=== PATIENT | male | born 1965 | race African-American/Black ===

== ENCOUNTER 2020-03-26 14:17 | Inpatient (IN) | payer OTHER ==
--- NOTE | 2020-03-26 20:43 | HP ---
COWS - Scale Resting Pulse: 0= [place] 80 or Below Sweatin= Chills/Flushing Restless Observation: 0= Sits Still Pupil Size: 0= Normal to Room Light Bone or Joint Aches: 4=Acute Joint/Muscle Pain Runny Nose/ Eye Tearin= Runny Nose/Eyes GI Upset > 30mins: 1= Stomach Cramp Tremor Observation: 0= None Yawning Observation: 1= 1-2x During Session Anxiety or Irritability: 1=Feels Anxious/Irritable Goose Flesh Skin: 0=Smooth Skin COWS Score: 10 CIWA Score Nausea/Vomitin-No Nausea/No Vomiting Muscle Tremors: None Anxiety: 1-Mildly Anxious Agitation: 1-Slight > Activity Paroxysmal Sweats: 1-Minimal Palms Moist Orientation: 1-Uncertain about Date Tacttile Disturbances: 0-None Auditory Disturbances: 0-None Visual Disturbances: 0-None Headache: 0-None Present CIWA-Ar Total Score: 4 - Admission Criteria OASAS Guidelines: Admission for Medically Managed Detox: Requires at least one of the followin. CIWA greater than 12 2. Seizures within the past 24 hours 3. Delirium tremens within the past 24 hours 4. Hallucinations within the past 24 hours 5. Acute intervention needed for co occurring medical disorder 6. Acute intervention needed for co occurring psychiatric disorder 7. Severe withdrawal that cannot be handled at a lower level of care (continued vomiting, continued diarrhea, abnormal vital signs) requiring intravenous medication and/or fluids 8. Admission [facility] Allergies/Adverse Reactions: Allergies Allergy/AdvReac Type Severity Reaction Status Date / Time No Known Allergies Allergy Verified 03/26/20 20:38 History of Present Illness: 54 y.o. male requesting detox from heroin and alcohol heroin 13-14 bags via inhalation , latest use yesterday etoh : 1 pint/day since 15 years ago , denies seizures, latest use yesterday , denies tremors or blackouts. cocaine : 50 $ every 3 days via smoking denies benzodiazepine and methadone use " sometimes they mix it with the drugs " tobacco : 6 cigs/day PMHX : COPD on Albuterol PSHX : denies Psych : denies Exam Limitations: Clinical Condition - Review of Systems Constitutional: Loss of Appetite, Unintentional Wgt. Loss (190 lbs previously , currently 170 lbs) EENT: reports: Tearing, Nose Congestion, Other (decreased vision) Respiratory: reports: Cough, Shortness of Breath Cardiac: reports: No Symptoms Reported GI: reports: Poor Appetite : reports: No Symptoms Reported Musculoskeletal: reports: Muscle Pain Integumentary: reports: No Symptoms Reported Neuro: reports: No Symptoms reported Endocrine: reports: No Symptoms Reported Hematology: reports: No Symptoms Reported Psychiatric: reports: Agitated, Anxious, Disorientated Patient History - Smoking Cessation Smoking history: Current every day smoker Have you smoked in the past 12 months: Yes Hx Chewing Tobacco Use: No Initiated information on smoking cessation: Yes 'Breaking Loose' booklet given: 03/26/20 Admission Physical Exam BHS - Physical General Appearance: Yes: Disheveled, Mild Distress, Irritable, Anxious HEENTM: Yes: EOMI, Nasal Congestion, Rhinorrhea, Muffled/Hoarse Voice Respiratory: Yes: Decreased Breath Sounds, No Respiratory Distress, No Accessory Muscle Use, Rales, Wheezing (scattered throughout lung marks), Other (cough) Neck: Yes: No masses,lesions,Nodules, Trachea in good position Cardiology: Yes: Regular Rhythm, Regular Rate, S1, S2 Abdominal: Yes: Non Tender, Soft Back: Yes: Normal Inspection Musculoskeletal: Yes: Gait Steady Extremities: Yes: Normal Range of Motion, Non-Tender Neurological: Yes: Motor Strength 5/5, Disoriented, Depressed Affect Integumentary: Yes: Warm, Other (trace pedal edema) - Addiitonal Findings: ED for COPD nebulizer tx as this is not available at this facility Pt refused to go and signed refusal of medical care with EMS and staff - Diagnostic (1) Opioid use disorder Current Visit: Yes Status: Chronic (2) Alcohol use disorder Current Visit: Yes Status: Chronic (3) Cocaine use disorder Current Visit: Yes Status: Chronic (4) Nicotine dependence Current Visit: Yes Status: Chronic Qualifiers: Nicotine product type: cigarettes Breathalyzer - Breathalyzer Breathalyzer: 0 Urine Drug Screen - Test Device Lot number: [id number] Expiration date: 11/08/21 - Control Is test valid?: Yes - Results Drug screen NEGATIVE: No Urine drug screen results: ESTHER-Cocaine, FEN-Fentanyl, MOP-Opiates, MTD- Methadone, BZO-Benzodiazepines Inpatient Rehab Admission - Rehab Decision to Admit Inpatient rehab admission?: No
[2020-03-26] MEDS ORDERED: MAGNESIUM HYDROX 2400MG/30ML ORAL SUSPENSION 30 ML CUP PO PRN (21:07)
[2020-03-26] MEDS ORDERED: MENTHOL/PHENOL 1 EACH UD MM PRN (21:07)
[2020-03-26] MEDS ORDERED: ACETAMINOPHEN 325 MG TABLET (FP) PO PRN ×2 (21:07)
[2020-03-26] MEDS ORDERED: MAG HYDROX/AL HYDROX/SIMETH 30 ML UNIT-DOSE CUP PO PRN (21:07)
[2020-03-26] MEDS ORDERED: hydrOXYzine PAMOATE 25 MG CAPSULE (FP) PO PRN (21:07)
[2020-03-26] MEDS ORDERED: MELATONIN 5 MG TABLETS PO PRN (21:07)
[2020-03-26] MEDS ORDERED: METHOCARBAMOL 500 MG TABLET PO PRN (21:07)
[2020-03-26] MEDS ORDERED: MAGNESIUM CITRATE 300 ML BOTTLE PO PRN (21:07)
[2020-03-26] MEDS ORDERED: BISMUTH SUBSALICYLATE 524 MG/30 ML UD PO PRN (21:07)
[2020-03-26] MEDS ORDERED: IBUPROFEN 400 MG TABLET (FP) PO PRN (21:07)
[2020-03-26] MEDS ORDERED: diazePAM 5 MG TABLET PO PRN (21:09)
[2020-03-26] MEDS ORDERED: cloNIDine HCL 0.1 MG TABLET PO PRN (21:10)
[2020-03-26] MEDS ORDERED: ONDANSETRON *ODT* 4 MG TABLET SL ONE (21:15)
[2020-03-26] MEDS ORDERED: METHADONE HCL 10 MG TABLET (FOR DETOX USE ONLY) ONE (21:28)
[2020-03-26] MEDS ORDERED: diazePAM 5 MG TABLET ONE (21:28)
[2020-03-26] MEDS ORDERED: METHADONE HCL 10 MG TABLET (FOR DETOX USE ONLY) PO ONE (21:30)
[2020-03-26] MEDS: diazePAM 5 MG TABLET PO SCH (21:40)
[2020-03-26 22:37] VITALS: BMI 23.0
[2020-03-26] MEDS: THIAMINE HCL 100 MG TABLET (FP) PO SCH (23:01)
[2020-03-27] MEDS: diazePAM 5 MG TABLET PO SCH ×3 (06:35→23:23)
[2020-03-27] MEDS ORDERED: METHADONE HCL 5 MG TABLET (FOR DETOX USE ONLY) PO ONE (10:00)
--- NOTE | 2020-03-27 10:19 | EKG ---
Test Reason : Blood Pressure : / mmHG Vent. Rate : 081 BPM Atrial Rate : 081 BPM P-R Int : 130 ms QRS Dur : 082 ms QT Int : 366 ms P-R-T Axes : 070 062 049 degrees QTc Int : 425 ms NORMAL SINUS RHYTHM NORMAL ECG NO PREVIOUS ECGS AVAILABLE Confirmed by MD Rizwan, Pool ([id number]) on 03/27/2020 10:18:53 AM Referred By: Confirmed By:Pool Astorga MD
[2020-03-27] MEDS: PRENATAL VITAMINS W/ FOLIC ACID TABLET (FP) PO SCH (10:44)
[2020-03-27 10:46] LABS: HEMATOCRIT 39.8 % (35.4-49); HEMOGLOBIN 12.9 GM/dL (11.7-16.9); MCH 29.8 pg (25.7-33.7); MCHC 32.3 g/dl (32.0-35.9); MEAN CELL VOLUME 92.4 fl (80-96); MEAN PLT VOLUME 8.5 fl (7.5-11.1); PLATELET COUNT 235 K/MM3 (134-434); RBC 4.31 M/mm3 (4.00-5.60); RDW 15.2 % (11.9-15.9); WHITE BLOOD COUNT 12.2 K/mm3 (4.0-10.0)
[2020-03-27 10:59] LABS: ALBUMIN 3.5 g/dl (3.4-5.0); BILIRUBIN,TOTAL 0.6 mg/dL (0.2-1); BLOOD UREA NITROGEN 15.1 mg/dL (7-18); CALCIUM 8.9 mg/dL (8.5-10.1); POTASSIUM 4.1 mmol/L (3.5-5.1); TOT PROT 6.4 g/dl (6.4-8.2)
--- NOTE | 2020-03-27 11:19 | PN ---
[facility] CIWA - CIWA Score Nausea/Vomitin-No Nausea/No Vomiting Muscle Tremors: None Anxiety: 3 Agitation: 0-Normal Activity Paroxysmal Sweats: 3 Orientation: 0-Oriented Tacttile Disturbances: 0-None Auditory Disturbances: 0-None Visual Disturbances: 0-None Headache: 2-Mild CIWA-Ar Total Score: 8 S COWS - Scale Resting Pulse: 1= [place] 81-100 Sweatin= Chills/Flushing Restless Observation: 1= Difficult to Sit Still Pupil Size: 0= Normal to Room Light Bone or Joint Aches: 2= Severe Diffuse Aches Runny Nose/ Eye Tearin= None GI Upset > 30mins: 0= None Tremor Observation of Outstretched Hands: 0= None Yawning Observation: 0= None Anxiety or Irritability: 2=Irritable/Anxious Goose Flesh Skin: 0=Smooth Skin COWS Score: 7 [facility] Progress Note (SOAP) Subjective: c/o sweats, anxiety, headache, and muscle aches. Objective: 03/27/20 11:15 Vital Signs 03/27/20 07:25 Temperature 99.1 F Pulse Rate 88 Respiratory 18 Rate Blood Pressure 145/99 O2 Sat by Pulse 96 Oximetry (%) Laboratory Last Values WBC 12.2 K/mm3 (4.0-10.0) H 03/27/20 08:30 RBC 4.31 M/mm3 (4.00-5.60) 03/27/20 08:30 Hgb 12.9 GM/dL (11.7-16.9) 03/27/20 08:30 Hct 39.8 % (35.4-49) 03/27/20 08:30 MCV 92.4 fl (80-96) 03/27/20 08:30 MCH 29.8 pg (25.7-33.7) 03/27/20 08:30 MCHC 32.3 g/dl (32.0-35.9) 03/27/20 08:30 RDW 15.2 % (11.9-15.9) 03/27/20 08:30 Plt Count 235 K/MM3 (134-434) 03/27/20 08:30 MPV 8.5 fl (7.5-11.1) 03/27/20 08:30 Sodium 140 mmol/L (136-145) 03/27/20 08:30 Potassium 4.1 mmol/L (3.5-5.1) 03/27/20 08:30 Chloride 105 mmol/L (98-107) 03/27/20 08:30 Carbon Dioxide 26 mmol/L (21-32) 03/27/20 08:30 Anion Gap 9 MMOL/L (8-16) 03/27/20 08:30 BUN 15.1 mg/dL (7-18) 03/27/20 08:30 Creatinine 1.0 mg/dL (0.55-1.3) 03/27/20 08:30 Est GFR (CKD-EPI)AfAm 99.85 03/27/20 08:30 Est GFR (CKD-EPI)NonAf 86.15 03/27/20 08:30 Random Glucose 87 mg/dL (74-106) 03/27/20 08:30 Calcium 8.9 mg/dL (8.5-10.1) 03/27/20 08:30 Total Bilirubin 0.6 mg/dL (0.2-1) 03/27/20 08:30 AST 21 U/L (15-37) 03/27/20 08:30 ALT 19 U/L (13-61) 03/27/20 08:30 Alkaline Phosphatase 58 U/L (45-117) 03/27/20 08:30 Total Protein 6.4 g/dl (6.4-8.2) 03/27/20 08:30 Albumin 3.5 g/dl (3.4-5.0) 03/27/20 08:30 Syphilis Serology Non-reactive (NONREACTIVE) 03/27/20 08:30 Labs noted with elevated WBC. Assessment: 03/27/20 11:15 AOX3, in no acute respiratory distress. Full ROM, ambulating in the unit. Withdrawal symptoms. Elevated WBC 03/27/20 11:20 Plan: continue detox. Increase fluids for hydration. Repeat cbc in AM.
[2020-03-27] MEDS: THIAMINE HCL 100 MG TABLET (FP) PO SCH (23:23)
[2020-03-28] MEDS: diazePAM 5 MG TABLET PO SCH ×2 (07:20→18:06)
[2020-03-28] MEDS ORDERED: METHADONE HCL 10 MG TABLET (FOR DETOX USE ONLY) PO ONE (10:00)
[2020-03-28] MEDS: PRENATAL VITAMINS W/ FOLIC ACID TABLET (FP) PO SCH (10:40)
[2020-03-28 10:47] LABS: BASO % 0.3 % (0-2.0); EOS % 2.9 % (0-4.5); HEMATOCRIT 40.3 % (35.4-49); HEMOGLOBIN 13.3 GM/dL (11.7-16.9); LYMPH % 20.2 % (8-40); MCH 30.5 pg (25.7-33.7); MCHC 33.1 g/dl (32.0-35.9); MEAN CELL VOLUME 92.2 fl (80-96); MEAN PLT VOLUME 8.4 fl (7.5-11.1); MONO % 8.8 % (3.8-10.2); NEUT % 67.8 % (42.8-82.8); PLATELET COUNT 225 K/MM3 (134-434); RBC 4.37 M/mm3 (4.00-5.60); RDW 15.5 % (11.9-15.9)
--- NOTE | 2020-03-28 11:15 | PN ---
[facility] CIWA - CIWA Score Nausea/Vomitin-No Nausea/No Vomiting Muscle Tremors: None Anxiety: 2 Agitation: 0-Normal Activity Paroxysmal Sweats: 2 Orientation: 0-Oriented Tacttile Disturbances: 0-None Auditory Disturbances: 0-None Visual Disturbances: 0-None Headache: 1-Very Mild CIWA-Ar Total Score: 5 S COWS - Scale Resting Pulse: 0= [place] 80 or Below Sweatin= No chills or Flushing Restless Observation: 0= Sits Still Pupil Size: 0= Normal to Room Light Bone or Joint Aches: 2= Severe Diffuse Aches Runny Nose/ Eye Tearin= None GI Upset > 30mins: 0= None Tremor Observation of Outstretched Hands: 0= None Yawning Observation: 0= None Anxiety or Irritability: 2=Irritable/Anxious Goose Flesh Skin: 0=Smooth Skin COWS Score: 4 [facility] Progress Note (SOAP) Subjective: c/o mild withdrawal symptoms. Objective: 03/28/20 11:14 Vital Signs 03/28/20 03/28/20 05:28 08:55 Temperature 98.1 F 98.4 F Pulse Rate 72 74 Respiratory 18 19 Rate Blood Pressure 124/100 145/87 O2 Sat by Pulse 96 96 Oximetry (%) Laboratory Last Values WBC 8.0 K/mm3 (4.0-10.0) 03/28/20 08:10 RBC 4.37 M/mm3 (4.00-5.60) 03/28/20 08:10 Hgb 13.3 GM/dL (11.7-16.9) 03/28/20 08:10 Hct 40.3 % (35.4-49) 03/28/20 08:10 MCV 92.2 fl (80-96) 03/28/20 08:10 MCH 30.5 pg (25.7-33.7) 03/28/20 08:10 MCHC 33.1 g/dl (32.0-35.9) 03/28/20 08:10 RDW 15.5 % (11.9-15.9) 03/28/20 08:10 Plt Count 225 K/MM3 (134-434) 03/28/20 08:10 MPV 8.4 fl (7.5-11.1) 03/28/20 08:10 Absolute Neuts (auto) 5.4 K/mm3 (1.5-8.0) 03/28/20 08:10 Neutrophils % 67.8 % (42.8-82.8) 03/28/20 08:10 Lymphocytes % 20.2 % (8-40) 03/28/20 08:10 Monocytes % 8.8 % (3.8-10.2) 03/28/20 08:10 Eosinophils % 2.9 % (0-4.5) 03/28/20 08:10 Basophils % 0.3 % (0-2.0) 03/28/20 08:10 Nucleated RBC % 0 % (0-0) 03/28/20 08:10 Sodium 140 mmol/L (136-145) 03/27/20 08:30 Potassium 4.1 mmol/L (3.5-5.1) 03/27/20 08:30 Chloride 105 mmol/L (98-107) 03/27/20 08:30 Carbon Dioxide 26 mmol/L (21-32) 03/27/20 08:30 Anion Gap 9 MMOL/L (8-16) 03/27/20 08:30 BUN 15.1 mg/dL (7-18) 03/27/20 08:30 Creatinine 1.0 mg/dL (0.55-1.3) 03/27/20 08:30 Est GFR (CKD-EPI)AfAm 99.85 03/27/20 08:30 Est GFR (CKD-EPI)NonAf 86.15 03/27/20 08:30 Random Glucose 87 mg/dL (74-106) 03/27/20 08:30 Calcium 8.9 mg/dL (8.5-10.1) 03/27/20 08:30 Total Bilirubin 0.6 mg/dL (0.2-1) 03/27/20 08:30 AST 21 U/L (15-37) 03/27/20 08:30 ALT 19 U/L (13-61) 03/27/20 08:30 Alkaline Phosphatase 58 U/L (45-117) 03/27/20 08:30 Total Protein 6.4 g/dl (6.4-8.2) 03/27/20 08:30 Albumin 3.5 g/dl (3.4-5.0) 03/27/20 08:30 Syphilis Serology Non-reactive (NONREACTIVE) 03/27/20 08:30 Labs noted. Assessment: 03/28/20 11:15 AOX3, in no acute respiratory distress. Full ROM, ambulating in the unit. Mild Withdrawal symptoms. For d/c tomorrow. Plan: continue detox. D/C in AM.
[2020-03-28] MEDS: THIAMINE HCL 100 MG TABLET (FP) PO SCH (22:14)
[2020-03-29] MEDS ORDERED: diazePAM 5 MG TABLET PO ONE (06:00)
[2020-03-29] MEDS ORDERED: METHADONE HCL 5 MG TABLET (FOR DETOX USE ONLY) PO ONE (06:00)
[2020-03-29 07:46] VITALS: BP 136/92; PULSE 68; TEMP 97.7
--- NOTE | 2020-03-29 10:14 | DS ---
[facility] Detox Discharge Summary Admission Date: 03/26/20 Discharge Date: 03/29/20 - History Present History: Alcohol Dependence, Opioid Dependence Additional Comments: Pt is medically cleared and discharged today. Pt completed the detox protocol. Pt is encouraged to follow-up with an outpatient CD program as discussed with his counselor and also to follow-up with his pmd which he verbalized understanding. Pt is AOX3, in no acute respiratory distress, Full ROM, and ambulatory. Pertinent Past History: h/o alcohol and heroin use disorder. - Physical Exam Results Vital Signs: Vital Signs Temperature 97.7 F 03/29/20 05:44 Pulse Rate 68 03/29/20 05:44 Respiratory Rate 18 03/29/20 05:44 Blood Pressure 136/92 03/29/20 05:44 O2 Sat by Pulse Oximetry (%) 96 03/29/20 05:44 Vital Signs 03/29/20 05:44 Temperature 97.7 F Pulse Rate 68 Respiratory 18 Rate Blood Pressure 136/92 O2 Sat by Pulse 96 Oximetry (%) Laboratory Last Values WBC 8.0 K/mm3 (4.0-10.0) 03/28/20 08:10 RBC 4.37 M/mm3 (4.00-5.60) 03/28/20 08:10 Hgb 13.3 GM/dL (11.7-16.9) 03/28/20 08:10 Hct 40.3 % (35.4-49) 03/28/20 08:10 MCV 92.2 fl (80-96) 03/28/20 08:10 MCH 30.5 pg (25.7-33.7) 03/28/20 08:10 MCHC 33.1 g/dl (32.0-35.9) 03/28/20 08:10 RDW 15.5 % (11.9-15.9) 03/28/20 08:10 Plt Count 225 K/MM3 (134-434) 03/28/20 08:10 MPV 8.4 fl (7.5-11.1) 03/28/20 08:10 Absolute Neuts (auto) 5.4 K/mm3 (1.5-8.0) 03/28/20 08:10 Neutrophils % 67.8 % (42.8-82.8) 03/28/20 08:10 Lymphocytes % 20.2 % (8-40) 03/28/20 08:10 Monocytes % 8.8 % (3.8-10.2) 03/28/20 08:10 Eosinophils % 2.9 % (0-4.5) 03/28/20 08:10 Basophils % 0.3 % (0-2.0) 03/28/20 08:10 Nucleated RBC % 0 % (0-0) 03/28/20 08:10 Sodium 140 mmol/L (136-145) 03/27/20 08:30 Potassium 4.1 mmol/L (3.5-5.1) 03/27/20 08:30 Chloride 105 mmol/L (98-107) 03/27/20 08:30 Carbon Dioxide 26 mmol/L (21-32) 03/27/20 08:30 Anion Gap 9 MMOL/L (8-16) 03/27/20 08:30 BUN 15.1 mg/dL (7-18) 03/27/20 08:30 Creatinine 1.0 mg/dL (0.55-1.3) 03/27/20 08:30 Est GFR (CKD-EPI)AfAm 99.85 03/27/20 08:30 Est GFR (CKD-EPI)NonAf 86.15 03/27/20 08:30 Random Glucose 87 mg/dL (74-106) 03/27/20 08:30 Calcium 8.9 mg/dL (8.5-10.1) 03/27/20 08:30 Total Bilirubin 0.6 mg/dL (0.2-1) 03/27/20 08:30 AST 21 U/L (15-37) 03/27/20 08:30 ALT 19 U/L (13-61) 03/27/20 08:30 Alkaline Phosphatase 58 U/L (45-117) 03/27/20 08:30 Total Protein 6.4 g/dl (6.4-8.2) 03/27/20 08:30 Albumin 3.5 g/dl (3.4-5.0) 03/27/20 08:30 Syphilis Serology Non-reactive (NONREACTIVE) 03/27/20 08:30 COVID-19 (NATAN) Not detected (Not Detected) 03/26/20 23:00 Labs noted. Pertinent Admission Physical Exam Findings: withdrawal symptoms. - Treatment Hospital Course: Detox Protocol Followed, Detoxed Safely, Responded well, Discharged Condition Good - Medication Discharge Medications: Ambulatory Orders Albuterol Sulfate Inhaler - [Ventolin Hfa Inhaler -] 1 - 2 inh PO Q4H PRN 03/26/20 - Diagnosis (1) Opioid withdrawal Current Visit: Yes Status: Acute (2) Alcohol withdrawal Current Visit: Yes Status: Acute (3) Alcohol use disorder Current Visit: Yes Status: Chronic (4) Nicotine dependence Current Visit: Yes Status: Chronic Qualifiers: Nicotine product type: cigarettes (5) Opioid use disorder Current Visit: Yes Status: Chronic - AMA Did Patient Leave Against Medical Advice: No
== END 2020-03-29 10:11 | disposition home or self-care (01) | DRG 773 ==
LOC: YASAS 14:17 → Y6N 20:37
PROVIDERS: ADMIT Allergy & Immunology; ATTEND Allergy & Immunology
PROC: HZ2ZZZZ Detoxification Services for Substance Abuse Treatment (ICD-10-PCS; principal; 2020-03-26)
DX: F11.23 Opioid dependence with withdrawal (principal); F10.230 Alcohol dependence with withdrawal, uncomplicated; F14.10 Cocaine abuse, uncomplicated; F17.210 Nicotine dependence, cigarettes, uncomplicated; J44.9 Chronic obstructive pulmonary disease, unspecified
CPT/HCPCS: 36415; 80053; 85025; 85027; 86780; 93005; 93010; U0003

== ENCOUNTER 2020-04-16 15:53 | Inpatient (IN) | payer OTHER ==
[2020-04-16 16:34] VITALS: BMI 23.0
--- NOTE | 2020-04-16 16:46 | BHS.RME ---
Substance Use & Tx History - Substance Use History Alcohol Substance amount: 1/2 pint Frequency of use: Daily Substance route: Oral Date of Last Use: 04/15/20 Heroin Substance amount: 11-12 bags Frequency of use: Daily Substance route: Inhalation (ex: sniffing or snorting) Date of Last Use: 04/15/20 Cocaine-Crack Substance amount: 4 bottles Frequency of use: Daily Substance route: Smoking Date of Last Use: 04/15/20 Nicotine Substance amount: 3-4 Frequency of use: Daily Substance route: Smoking Date of Last Use: 04/16/20 - Last Treatment Date of last treatment: 03/29/20 Treatment type: Substance Use Disorder ([facility]) Where was last treatment: Detox Physical/Psych/Mental Status - Behavior Eye Contact: Decreased - Cooperativeness Cooperativeness: Cooperative - Thinking Thought Processes: Goal Directed Thought content: Future oriented - Physical Health Problems Is patient presently having any pain?: No (Joints hurt - r/t withdrawal) Does patient presently have any injuries (include location): No Does patient currently have a fever: No COWS - Scale Resting Pulse: 0= [place] 80 or Below Sweatin=Flushed/Facial Moisture Restless Observation: 1= Difficult to Sit Still Pupil Size: 2= Moderately Dilated (Pupils = 4 mm) Bone or Joint Aches: 2= Severe Diffuse Aches ("7") Runny Nose/ Eye Tearin= Runny Nose/Eyes GI Upset > 30mins: 0= None Tremor Observation: 2= Slight Tremor Visible Yawning Observation: 0= None Anxiety or Irritability: 1=Feels Anxious/Irritable Goose Flesh Skin: 0=Smooth Skin COWS Score: 12 CIWA Nausea/Vomitin-No Nausea/No Vomiting Muscle Tremors: 3 Anxiety: 2 Agitation: 3 Paroxysmal Sweats: 3 Orientation: 1-Uncertain about Date Tacttile Disturbances: 0-None Auditory Disturbances: 0-None Visual Disturbances: 0-None Headache: 0-None Present CIWA-Ar Total Score: 12
--- NOTE | 2020-04-16 17:37 | HP ---
COWS - Scale Resting Pulse: 0= [place] 80 or Below Sweatin=Flushed/Facial Moisture Restless Observation: 1= Difficult to Sit Still Pupil Size: 2= Moderately Dilated (Pupils = 5 mm) Bone or Joint Aches: 2= Severe Diffuse Aches ("7") Runny Nose/ Eye Tearin= Runny Nose/Eyes GI Upset > 30mins: 0= None Tremor Observation: 2= Slight Tremor Visible Yawning Observation: 0= None Anxiety or Irritability: 1=Feels Anxious/Irritable Goose Flesh Skin: 0=Smooth Skin COWS Score: 12 CIWA Score Nausea/Vomitin-No Nausea/No Vomiting Muscle Tremors: 3 Anxiety: 2 Agitation: 3 Paroxysmal Sweats: 3 Orientation: 1-Uncertain about Date Tacttile Disturbances: 0-None Auditory Disturbances: 0-None Visual Disturbances: 0-None Headache: 0-None Present CIWA-Ar Total Score: 12 - Admission Criteria OASAS Guidelines: Admission for Medically Managed Detox: Requires at least one of the followin. CIWA greater than 12 2. Seizures within the past 24 hours 3. Delirium tremens within the past 24 hours 4. Hallucinations within the past 24 hours 5. Acute intervention needed for co occurring medical disorder 6. Acute intervention needed for co occurring psychiatric disorder 7. Severe withdrawal that cannot be handled at a lower level of care (continued vomiting, continued diarrhea, abnormal vital signs) requiring intravenous medication and/or fluids 8. Patient presents the following: CIWA greater than 12 Admission Criteria Met: Admission criteria met Admitting History and Physical - Smoking History Smoking history: Current every day smoker Have you smoked in the past 12 months: Yes Admission ROS [facility] Chief Complaint: "Here to try to stop using drugs" Allergies/Adverse Reactions: Allergies Allergy/AdvReac Type Severity Reaction Status Date / Time No Known Allergies Allergy Verified 04/16/20 17:47 History of Present Illness: 54 yo presents w/ alcohol and opioid withdrawal symptoms seeking detox Discharged from [facility] on 03/29/20 and relapsed w/in 2 days. Denies seizures or blackouts. Hx: Overdose - last 4-5 months. Does not have a Narcan Kit and encouraged to request at discharge ANIKET: 0.0 UTox: +ESTHER/FEN/MOP Alcohol use began at age 18. 1/2 pint/Daily Heroin use since age 18. 11-12 bags/daily/Nasal Cocaine-Crack use began at age 18. 4 bottles/daily/smokes Nicotine use began at age 18. 3-4 cig/day PMHx: COPD MHHx: Anxiety, Depression. Denies MH meds. Denies thoughts of harming self or others. SHx: Homeless. Unemployed. Denies legal issues. Patient Name: Pasha Parsons Date: 1965 Address: [address] [place] [address] Sex: Male Rx Written Rx Dispensed Drug Quantity Days Supply Prescriber Name Payment Method Dispenser 10/14/2019 10/14/2019 buprenorphine-naloxone 8-2 mg sl film 9 3 LaksEfrem MD Other [employer] 10/14/2019 10/14/2019 chlordiazepoxide 10 mg capsule 36 3 Laks, Efrem BARAJAS Other [employer] Date: 1965 Address: [address] [place] [address] Sex: Male Rx Written Rx Dispensed Drug Quantity Days Supply Prescriber Name Payment Method Dispenser 08/31/2019 09/02/2019 lorazepam 1 mg tablet 3 1 Nai Mejias) Insurance Lirx 08/19/2019 08/26/2019 lorazepam 1 mg tablet 4 1 Nai Mejias) Insurance Lirx 08/16/2019 08/19/2019 buprenorphine-naloxone 8-2 mg sl film 15 5 Nai Mejias) Insurance Lirx 08/16/2019 08/19/2019 lorazepam 1 mg tablet 20 2 Nai Mejias) Insurance Lirx 07/19/2019 07/19/2019 lorazepam 1 mg tablet 7 2 Nai Mejias) Insurance Lirx 07/08/2019 07/09/2019 lorazepam 1 mg tablet 20 7 Marni Coello Insurance Lirx 07/08/2019 07/09/2019 buprenorphine-naloxone 8-2 mg sl film 30 10 Marni Coello Insurance Lirx Exam Limitations: No Limitations - Ebola screening Have you traveled outside of the country in the last 21 days: No (Neg COVID- 03/26/20) Have you had contact with anyone from an Ebola affected area: No Have you been sick,other than usual withdrawal symptoms: No Do you have a fever: No - Review of Systems Constitutional: Chills, Diaphoresis, Unintentional Wgt. Loss EENT: reports: Blurred Vision, Nose Congestion Respiratory: reports: Cough (Occ cough) Cardiac: reports: No Symptoms Reported GI: reports: No Symptoms Reported : reports: No Symptoms Reported Musculoskeletal: reports: Joint Pain (r/t withdrawal) Integumentary: reports: No Symptoms Reported Neuro: reports: Tremors Endocrine: reports: No Symptoms Reported Hematology: reports: No Symptoms Reported Psychiatric: reports: Agitated, Anxious, Depressed (Denies thoughts of harming self or others) Other Systems: Reviewed and Negative Patient History - Patient Medical History Hx Asthma: Yes Hx Chronic Obstructive Pulmonary Disease (COPD): Yes Hx Cardiac Disorders: No Hx Hypertension: No Hx Seizures: No Hx Diabetes: No Hx Gastrointestinal Disorders: No Hx Genitourinary Disorders: No Hx Sexually Transmitted Disorders: No Hx Renal Disease (ESRD): No Hx Depression: No Hx Suicide Attempt: No Hx Schizophrenia: No - Patient Surgical History Past Surgical History: No Hx Neurologic Surgery: No Hx Cataract Extraction: No Hx Cardiac Surgery: No Hx Lung Surgery: No Hx Breast Surgery: No Hx Breast Biopsy: No Hx Abdominal Surgery: No Hx Appendectomy: No Hx Cholecystectomy: No Hx Genitourinary Surgery: No Hx Section: No Hx Orthopedic Surgery: No Anesthesia Reaction: No - PPD History Previous Implant?: Yes Documented Results: Negative w/proof Implanted On Prior [facility] Admission?: Yes Date: 03/28/20 PPD to be Administered?: No - Smoking Cessation Smoking history: Current every day smoker Have you smoked in the past 12 months: Yes Aproximately how many cigarettes per day: 4 Hx Chewing Tobacco Use: No Initiated information on smoking cessation: Yes 'Breaking Loose' booklet given: 04/16/20 - Substance & Tx. History Hx Alcohol Use: Yes Hx Substance Use: Yes Substance Use Type: Alcohol, Cocaine, Heroin, Opiates Hx Substance Use Treatment: Yes (detox, rehab (ages ago)) Admission Physical Exam BHS - Vital Signs Vital Signs: Vital Signs - 24 hr 04/16/20 16:33 Temperature 98.2 F Pulse Rate 67 Respiratory 18 Rate Blood Pressure 140/90 - Physical General Appearance: Yes: Nourished, Mild Distress, Tremorous, Sweating, Anxious HEENTM: Yes: EOMI, Hearing grossly Normal, Normal ENT Inspection, Normocephalic, Normal Voice, ALBERTA (Pupils = 5 mm), Pharynx Normal (Thickened saliva), Nasal Congestion Respiratory: Yes: No Respiratory Distress, Wheezing (Inspiratory wheeze upper - Pulse ox = 96%), Other (Cough productive clear mucous) Neck: Yes: No masses,lesions,Nodules, Supple Breast: Yes: Breast Exam Deferred Cardiology: Yes: Regular Rhythm, Regular Rate (HR: 60), S1, S2 Abdominal: Yes: Non Tender, Flat, Soft, Increased Bowel Sounds Genitourinary: Yes: Within Normal Limits Back: Yes: Normal Inspection Musculoskeletal: Yes: full range of Motion, Gait Steady Extremities: Yes: Normal Capillary Refill, Tremors Neurological: Yes: associate [employer]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-XII NML intact, Fully Oriented, Alert, Motor Strength 5/5 Integumentary: Yes: Normal Color, Warm, Mottled (Bottom of feet w/ mottled skin, flaky, w/ cracking), Moist (Increased facial moisture.), Other (decreased skin turgor) Lymphatic: Yes: Within Normal Limits - Diagnostic (1) Tinea pedis Current Visit: Yes Status: Chronic Qualifiers: Laterality: bilateral Qualified Code(s): B35.3 - Tinea pedis (2) Alcohol dependence with withdrawal, uncomplicated Current Visit: Yes Status: Acute (3) Opioid dependence with withdrawal Current Visit: Yes Status: Acute (4) COPD (chronic obstructive pulmonary disease) Current Visit: Yes Status: Chronic Qualifiers: COPD type: unspecified COPD Qualified Code(s): J44.9 - Chronic obstructive pulmonary disease, unspecified (5) Cough Current Visit: Yes Status: Chronic (6) Cocaine use disorder Current Visit: Yes Status: Chronic (7) Nicotine dependence Current Visit: Yes Status: Chronic Qualifiers: Nicotine product type: cigarettes Substance use status: uncomplicated Qualified Code(s): F17.210 - Nicotine dependence, cigarettes, uncomplicated (8) Dehydration symptoms Current Visit: Yes Status: Acute Cleared for Admission S - Detox or Rehab [facility] Level of Care: Medically Managed Detox Regimen/Protocol: Methadone, Valium Claeared for Rehab Admission: No Breathalyzer - Breathalyzer Breathalyzer: 0 Urine Drug Screen - Test Device Lot number: [id number] Expiration date: 11/08/21 - Control Is test valid?: Yes - Results Drug screen NEGATIVE: No Urine drug screen results: ESTHER-Cocaine, FEN-Fentanyl, MOP-Opiates Inpatient Rehab Admission - Rehab Decision to Admit Inpatient rehab admission?: No
[2020-04-16] MEDS ORDERED: MAG HYDROX/AL HYDROX/SIMETH 30 ML UNIT-DOSE CUP PO PRN (18:11)
[2020-04-16] MEDS ORDERED: BISMUTH SUBSALICYLATE 524 MG/30 ML UD PO PRN (18:11)
[2020-04-16] MEDS ORDERED: IBUPROFEN 400 MG TABLET (FP) PO PRN (18:11)
[2020-04-16] MEDS ORDERED: MAGNESIUM HYDROX 2400MG/30ML ORAL SUSPENSION 30 ML CUP PO PRN (18:11)
[2020-04-16] MEDS ORDERED: METHADONE HCL 10 MG TABLET (FOR DETOX USE ONLY) PO ONE (18:11)
[2020-04-16] MEDS ORDERED: NICOTINE 7 MG/24 HOURS TOPICAL PATCH TD PRN (18:11)
[2020-04-16] MEDS ORDERED: MENTHOL/PHENOL 1 EACH UD MM PRN (18:11)
[2020-04-16] MEDS ORDERED: ACETAMINOPHEN 325 MG TABLET (FP) PO PRN (18:11)
[2020-04-16] MEDS ORDERED: cloNIDine HCL 0.1 MG TABLET PO PRN (18:11)
[2020-04-16] MEDS ORDERED: ONDANSETRON *ODT* 4 MG TABLET SL PRN (18:11)
[2020-04-16] MEDS ORDERED: MAGNESIUM CITRATE 300 ML BOTTLE PO PRN (18:11)
[2020-04-16] MEDS ORDERED: diazePAM 5 MG TABLET PO ONE (18:11)
[2020-04-16] MEDS ORDERED: diazePAM 5 MG TABLET PO PRN (18:11)
[2020-04-16] MEDS ORDERED: NICOTINE POLACRILEX 2 MG GUM BUC PRN (18:11)
[2020-04-16] MEDS ORDERED: ALBUTEROL SO4 2.5/IPRATROPIUM 0.5 INH SOL 3 ML VIAL.NEB. NEB SCH (18:15)
--- OUTSIDE RECORDS SUMMARY | 2020-04-16 18:38 | XMS ---
:1965 Author Organization [facility] Support Name Relationship Address Phone UE Unavailable Unavailable Unavailable GEOVANI KELLY SELF / SAME PATIENT [address] [phone] [place] [address] GEOVANI KELLY [address] [place] [address] Re-disclosure Warning The records that you are about to access may contain information from federally- assisted alcohol or drug abuse programs. If such information is present, then the following federally mandated warning applies: This information has been disclosed to you from records protected by federal confidentiality rules (42 CFR part 2). The federal rules prohibit you from making any further disclosure of this information unless further disclosure is expressly permitted by the written consent of the person to whom it pertains or as otherwise permitted by 42 CFR part 2. A general authorization for the release of medical or other information is NOT sufficient for this purpose. The Federal rules restrict any use of the information to criminally investigate or prosecute any alcohol or drug abuse patient.The records that you are about to access may contain highly sensitive health information, the redisclosure of which is protected by Article 27-F of the [facility] Public Health law. If you continue you may haveaccess to information: Regarding HIV / AIDS; Provided by facilities licensed or operated by the [facility] Office of Mental Health; or Provided by the [facility] Office for People With Developmental Disabilities. If such information is present, then the following [facility] mandated warning applies: This information has been disclosed to you from confidential records which are protected by state law. State law prohibits you from making any further disclosure of this information without the specific written consent of the person to whom it pertains, or as otherwise permitted by law. Any unauthorized further disclosure in violation of state law may result in a fine or alf sentence or both. A general authorization for the release of medical or other information is NOT sufficient authorization for further disclosure. Insurance Providers Payer name Policy type Policy ID Covered Covered republican's Policy P rebeca / Coverage republican ID relationship to Ansari Inf ormation type ansari HEVER [id number] 400 HEALTH NON CAP Results ID Date Data Source [id number] 03/26/2020 11:00:00 PM EDT [facility] Name Value Range Interpretation Description Data Sup porting Code Source(s) Document(s ) SARS [facility] coronavirus 2 RNA This lab was ordered by [facility] and reported by [facility]. ID Date Data Source [id number] 02/10/2020 04:18:00 PM EDT [facility] Name Value Range Interpretation Code Description Data Guillermina rce(s) Supporting Document(s ) 2019 N COV [facility] This lab was ordered by [facility] and reported by [facility]. Procedure
[2020-04-16] MEDS: guaiFENesin 200 MG/10 ML 10 ML UNIT-DOSE CUPS PO SCH (18:45)
[2020-04-16] MEDS: ALBUTEROL SO4 HFA INHALER IH SCH (20:54)
--- NOTE | 2020-04-16 20:54 | PN ---
S Progress Note Note: pt admitted today denies c/o resp : no distress , no accessory mm use , denies SOB . Bilateral wheezing . Per nursing , pt refused Albuterol inhaler today . Vital Signs - 24 hr 04/16/20 04/16/20 04/16/20 16:33 17:48 20:50 Temperature 98.2 F 98.2 F 101.3 F H Pulse Rate 67 67 52 L Respiratory 18 18 16 Rate Blood Pressure 140/90 140/90 141/74 O2 Sat by Pulse 100 Oximetry (%) P Tylenol x 1 , repeat temp 99.5 . COVID pending Nursing to monitor and advise medical of any changes
[2020-04-16] MEDS: ACETAMINOPHEN 325 MG TABLET (FP) PO PRN (20:56)
[2020-04-16] MEDS: TOLNAFTATE 1% CREAM 15 GM TUBE TP SCH (22:36)
[2020-04-16] MEDS: MELATONIN 5 MG TABLETS PO SCH (22:36)
[2020-04-16] MEDS: METHOCARBAMOL 500 MG TABLET PO SCH (22:36)
[2020-04-16] MEDS: THIAMINE HCL 100 MG TABLET (FP) PO SCH (22:37)
[2020-04-16] MEDS: diazePAM 5 MG TABLET PO SCH (22:37)
[2020-04-17] MEDS: ALBUTEROL SO4 HFA INHALER IH SCH ×4 (01:44→20:20)
[2020-04-17] MEDS: guaiFENesin 200 MG/10 ML 10 ML UNIT-DOSE CUPS PO SCH ×4 (01:44→18:03)
[2020-04-17] MEDS: diazePAM 5 MG TABLET PO SCH ×4 (05:50→22:03)
[2020-04-17] MEDS: ACETAMINOPHEN 325 MG TABLET (FP) PO PRN (08:08)
[2020-04-17] MEDS ORDERED: METHADONE HCL 10 MG TABLET (FOR DETOX USE ONLY) PO ONE (10:00)
[2020-04-17 10:35] LABS: ALBUMIN 3.5 g/dl (3.4-5.0); BILIRUBIN,TOTAL 1.2 mg/dL (0.2-1); BLOOD UREA NITROGEN 9.9 mg/dL (7-18); CALCIUM 8.8 mg/dL (8.5-10.1); POTASSIUM 3.7 mmol/L (3.5-5.1); TOT PROT 6.4 g/dl (6.4-8.2)
[2020-04-17 10:38] LABS: HEMATOCRIT 40.3 % (35.4-49); MCH 29.9 pg (25.7-33.7); MCHC 32.3 g/dl (32.0-35.9); MEAN CELL VOLUME 92.3 fl (80-96); MEAN PLT VOLUME 8.6 fl (7.5-11.1); PLATELET COUNT 200 K/MM3 (134-434); RBC 4.37 M/mm3 (4.00-5.60); RDW 15.4 % (11.9-15.9); WHITE BLOOD COUNT 8.1 K/mm3 (4.0-10.0)
[2020-04-17] MEDS: PRENATAL VITAMINS W/ FOLIC ACID TABLET (FP) PO SCH (10:49)
[2020-04-17] MEDS: METHOCARBAMOL 500 MG TABLET PO SCH ×2 (10:50→22:04)
[2020-04-17] MEDS: TOLNAFTATE 1% CREAM 15 GM TUBE TP SCH ×2 (10:59→22:04)
[2020-04-17] MEDS ORDERED: ALBUTEROL SO4 2.5/IPRATROPIUM 0.5 INH SOL 3 ML VIAL.NEB. NEB PRN (11:44)
--- NOTE | 2020-04-17 11:44 | PN ---
[facility] CIWA - CIWA Score Nausea/Vomitin-No Nausea/No Vomiting Muscle Tremors: 3 Anxiety: 3 Agitation: 3 Paroxysmal Sweats: 3 Orientation: 0-Oriented Tacttile Disturbances: 0-None Auditory Disturbances: 0-None Visual Disturbances: 0-None Headache: 0-None Present CIWA-Ar Total Score: 12 BHS COWS - Scale Resting Pulse: 0= [place] 80 or Below Sweatin= Chills/Flushing Restless Observation: 0= Sits Still Pupil Size: 0= Normal to Room Light Bone or Joint Aches: 2= Severe Diffuse Aches Runny Nose/ Eye Tearin= Nasal Congestion GI Upset > 30mins: 0= None Tremor Observation of Outstretched Hands: 1= Tremor [place], Not Seen Yawning Observation: 2= >3x During Session Anxiety or Irritability: 2=Irritable/Anxious Goose Flesh Skin: 0=Smooth Skin COWS Score: 9 S Progress Note (SOAP) Subjective: sweats tired body aches irritable Objective: 04/17/20 11:40 Vital Signs Temperature 101.8 F H 04/17/20 08:52 Pulse Rate 78 04/17/20 08:52 Respiratory Rate 18 04/17/20 08:52 Blood Pressure 139/78 04/17/20 08:52 O2 Sat by Pulse Oximetry (%) 95 04/17/20 08:52 Laboratory Tests 04/16/20 04/17/20 04/17/20 18:00 08:00 08:00 WBC 8.1 RBC 4.37 Hgb 13.0 Hct 40.3 MCV 92.3 MCH 29.9 MCHC 32.3 RDW 15.4 Plt Count 200 MPV 8.6 Sodium 140 Potassium 3.7 Chloride 105 Carbon Dioxide 28 Anion Gap 6 L BUN 9.9 Creatinine 1.0 Est GFR (CKD-EPI)AfAm 99.85 Est GFR (CKD-EPI)NonAf 86.15 Random Glucose 80 Calcium 8.8 Total Bilirubin 1.2 H AST 20 ALT 16 Alkaline Phosphatase 62 Total Protein 6.4 Albumin 3.5 Syphilis Serology COVID-19 ([facility]) Not detected 04/17/20 08:00 WBC RBC Hgb Hct MCV MCH MCHC RDW Plt Count MPV Sodium Potassium Chloride Carbon Dioxide Anion Gap BUN Creatinine Est GFR (CKD-EPI)AfAm Est GFR (CKD-EPI)NonAf Random Glucose Calcium Total Bilirubin AST ALT Alkaline Phosphatase Total Protein Albumin Syphilis Serology Non-reactive COVID-19 ([facility]) labs noted aaox3 lying in bed no acute distress Assessment: 04/17/20 11:40 continue detox lungs assessed; rhonchi and wheezing noted on inspiration pt states he has a h/o asthma and COPD Plan: continue detox increase fluids encouraged mucinex duoneb prn
[2020-04-17] MEDS: guaiFENesin 600 MG TABLET.ER (FP) PO SCH ×2 (12:50→22:03)
[2020-04-17] MEDS: THIAMINE HCL 100 MG TABLET (FP) PO SCH (22:03)
[2020-04-17] MEDS: MELATONIN 5 MG TABLETS PO SCH (22:04)
[2020-04-18] MEDS: guaiFENesin 200 MG/10 ML 10 ML UNIT-DOSE CUPS PO SCH ×5 (01:26→23:15)
[2020-04-18] MEDS: ALBUTEROL SO4 HFA INHALER IH SCH (03:13)
[2020-04-18] MEDS: diazePAM 5 MG TABLET PO SCH ×3 (06:48→23:14)
[2020-04-18] MEDS ORDERED: METHADONE HCL 10 MG TABLET (FOR DETOX USE ONLY) ONE (09:01)
[2020-04-18] MEDS ORDERED: METHADONE HCL 5 MG TABLET (FOR DETOX USE ONLY) ONE (09:02)
[2020-04-18] MEDS ORDERED: METHADONE (DETOX) 10 MG, METHADONE (DETOX) 5 MG PO ONE (10:00)
[2020-04-18] MEDS ORDERED: METHADONE HCL 10 MG TABLET (FOR DETOX USE ONLY) PO ONE (10:00)
[2020-04-18] MEDS: METHOCARBAMOL 500 MG TABLET PO SCH ×2 (10:14→23:14)
[2020-04-18] MEDS: PRENATAL VITAMINS W/ FOLIC ACID TABLET (FP) PO SCH (10:14)
[2020-04-18] MEDS: guaiFENesin 600 MG TABLET.ER (FP) PO SCH ×2 (10:14→23:07)
[2020-04-18] MEDS: TOLNAFTATE 1% CREAM 15 GM TUBE TP SCH ×2 (10:15→23:14)
[2020-04-18] MEDS ORDERED: ALBUTEROL SO4 HFA INHALER IH PRN (10:17)
--- NOTE | 2020-04-18 11:19 | PN ---
S CIWA - CIWA Score Nausea/Vomitin-No Nausea/No Vomiting Muscle Tremors: 2 Anxiety: 1-Mildly Anxious Agitation: 2 Paroxysmal Sweats: 1-Minimal Palms Moist Orientation: 0-Oriented Tacttile Disturbances: 0-None Auditory Disturbances: 0-None Visual Disturbances: 0-None Headache: 0-None Present CIWA-Ar Total Score: 6 BHS COWS - Scale Resting Pulse: 0= [place] 80 or Below Sweatin= Chills/Flushing Restless Observation: 0= Sits Still Pupil Size: 0= Normal to Room Light Bone or Joint Aches: 1= Mild Discomfort Runny Nose/ Eye Tearin= Nasal Congestion GI Upset > 30mins: 0= None Tremor Observation of Outstretched Hands: 1= Tremor [place], Not Seen Yawning Observation: 1= 1-2x During Session Anxiety or Irritability: 1=Feels Anxious/Irritable Goose Flesh Skin: 0=Smooth Skin COWS Score: 6 [facility] Progress Note (SOAP) Subjective: sweats chills I am feeling better Objective: 04/18/20 11:19 Vital Signs Temperature 97.5 F L 04/18/20 09:18 Pulse Rate 66 04/18/20 09:18 Respiratory Rate 20 04/18/20 09:18 Blood Pressure 141/92 04/18/20 09:18 O2 Sat by Pulse Oximetry (%) 95 04/17/20 20:53 Laboratory Tests 04/16/20 04/17/20 04/17/20 18:00 08:00 08:00 WBC 8.1 RBC 4.37 Hgb 13.0 Hct 40.3 MCV 92.3 MCH 29.9 MCHC 32.3 RDW 15.4 Plt Count 200 MPV 8.6 Sodium 140 Potassium 3.7 Chloride 105 Carbon Dioxide 28 Anion Gap 6 L BUN 9.9 Creatinine 1.0 Est GFR (CKD-EPI)AfAm 99.85 Est GFR (CKD-EPI)NonAf 86.15 Random Glucose 80 Calcium 8.8 Total Bilirubin 1.2 H AST 20 ALT 16 Alkaline Phosphatase 62 Total Protein 6.4 Albumin 3.5 Syphilis Serology COVID-19 ([facility]) Not detected 04/17/20 08:00 WBC RBC Hgb Hct MCV MCH MCHC RDW Plt Count MPV Sodium Potassium Chloride Carbon Dioxide Anion Gap BUN Creatinine Est GFR (CKD-EPI)AfAm Est GFR (CKD-EPI)NonAf Random Glucose Calcium Total Bilirubin AST ALT Alkaline Phosphatase Total Protein Albumin Syphilis Serology Non-reactive COVID-19 ([facility]) aaox3 ambulating no acute distress Assessment: 04/18/20 11:21 withdrawals Plan: continue detox increase fluids
[2020-04-18] MEDS: THIAMINE HCL 100 MG TABLET (FP) PO SCH (23:07)
[2020-04-18] MEDS: MELATONIN 5 MG TABLETS PO SCH (23:14)
[2020-04-19] MEDS: guaiFENesin 200 MG/10 ML 10 ML UNIT-DOSE CUPS PO SCH ×2 (07:09→15:03)
[2020-04-19] MEDS: diazePAM 5 MG TABLET PO SCH ×2 (07:09→19:00)
[2020-04-19] MEDS ORDERED: METHADONE HCL 5 MG TABLET (FOR DETOX USE ONLY) ONE (08:32)
[2020-04-19] MEDS ORDERED: METHADONE HCL 10 MG TABLET (FOR DETOX USE ONLY) ONE (08:32)
[2020-04-19] MEDS ORDERED: METHADONE (DETOX) 10 MG, METHADONE (DETOX) 5 MG PO ONE (10:00)
[2020-04-19] MEDS: PRENATAL VITAMINS W/ FOLIC ACID TABLET (FP) PO SCH (10:18)
[2020-04-19] MEDS: guaiFENesin 600 MG TABLET.ER (FP) PO SCH ×2 (10:18→23:46)
[2020-04-19] MEDS: TOLNAFTATE 1% CREAM 15 GM TUBE TP SCH ×2 (10:18→23:46)
[2020-04-19] MEDS: METHOCARBAMOL 500 MG TABLET PO SCH ×2 (10:18→23:46)
--- NOTE | 2020-04-19 10:58 | PN ---
S CIWA - CIWA Score Nausea/Vomitin-No Nausea/No Vomiting Muscle Tremors: 2 Anxiety: 1-Mildly Anxious Agitation: 1-Slight > Activity Paroxysmal Sweats: 1-Minimal Palms Moist Orientation: 0-Oriented Tacttile Disturbances: 0-None Auditory Disturbances: 0-None Visual Disturbances: 0-None Headache: 0-None Present CIWA-Ar Total Score: 5 BHS COWS - Scale Resting Pulse: 0= [place] 80 or Below Sweatin= Chills/Flushing Restless Observation: 0= Sits Still Pupil Size: 0= Normal to Room Light Bone or Joint Aches: 1= Mild Discomfort Runny Nose/ Eye Tearin= None GI Upset > 30mins: 0= None Tremor Observation of Outstretched Hands: 1= Tremor [place], Not Seen Yawning Observation: 1= 1-2x During Session Anxiety or Irritability: 1=Feels Anxious/Irritable Goose Flesh Skin: 0=Smooth Skin COWS Score: 5 S Progress Note (SOAP) Subjective: feeling better tired little bit of sweats last night Objective: 04/19/20 10:58 Vital Signs Temperature 97.5 F L 04/19/20 08:32 Pulse Rate 67 04/19/20 08:32 Respiratory Rate 18 04/19/20 08:32 Blood Pressure 153/91 04/19/20 08:32 O2 Sat by Pulse Oximetry (%) 97 04/19/20 05:31 Laboratory Tests 04/16/20 04/17/20 04/17/20 18:00 08:00 08:00 WBC 8.1 RBC 4.37 Hgb 13.0 Hct 40.3 MCV 92.3 MCH 29.9 MCHC 32.3 RDW 15.4 Plt Count 200 MPV 8.6 Sodium 140 Potassium 3.7 Chloride 105 Carbon Dioxide 28 Anion Gap 6 L BUN 9.9 Creatinine 1.0 Est GFR (CKD-EPI)AfAm 99.85 Est GFR (CKD-EPI)NonAf 86.15 Random Glucose 80 Calcium 8.8 Total Bilirubin 1.2 H AST 20 ALT 16 Alkaline Phosphatase 62 Total Protein 6.4 Albumin 3.5 Syphilis Serology COVID-19 ([facility]) Not detected 04/17/20 08:00 WBC RBC Hgb Hct MCV MCH MCHC RDW Plt Count MPV Sodium Potassium Chloride Carbon Dioxide Anion Gap BUN Creatinine Est GFR (CKD-EPI)AfAm Est GFR (CKD-EPI)NonAf Random Glucose Calcium Total Bilirubin AST ALT Alkaline Phosphatase Total Protein Albumin Syphilis Serology Non-reactive COVID-19 ([facility]) labs noted aaox3 ambulating no acute distress Assessment: 04/19/20 10:58 withdrawals Plan: continue detox
[2020-04-19 22:59] VITALS: PULSE 82
[2020-04-19] MEDS: MELATONIN 5 MG TABLETS PO SCH (23:46)
[2020-04-19] MEDS: THIAMINE HCL 100 MG TABLET (FP) PO SCH (23:46)
[2020-04-20] MEDS ORDERED: diazePAM 5 MG TABLET PO ONE (06:00)
--- NOTE | 2020-04-20 09:22 | DS ---
[facility] Detox Discharge Summary Admission Date: 04/16/20 Discharge Date: 04/20/20 - History Present History: Opioid Dependence - Physical Exam Results Vital Signs: Vital Signs Temperature 97.7 F 04/20/20 05:41 Pulse Rate 82 04/20/20 05:41 Respiratory Rate 20 04/20/20 05:41 Blood Pressure 133/97 04/20/20 05:41 O2 Sat by Pulse Oximetry (%) 96 04/20/20 05:41 Pertinent Admission Physical Exam Findings: Vital Signs Temperature 97.7 F 04/20/20 05:41 Pulse Rate 82 04/20/20 05:41 Respiratory Rate 20 04/20/20 05:41 Blood Pressure 133/97 04/20/20 05:41 O2 Sat by Pulse Oximetry (%) 96 04/20/20 05:41 Laboratory Tests 04/16/20 04/17/20 04/17/20 18:00 08:00 08:00 WBC 8.1 RBC 4.37 Hgb 13.0 Hct 40.3 MCV 92.3 MCH 29.9 MCHC 32.3 RDW 15.4 Plt Count 200 MPV 8.6 Sodium 140 Potassium 3.7 Chloride 105 Carbon Dioxide 28 Anion Gap 6 L BUN 9.9 Creatinine 1.0 Est GFR (CKD-EPI)AfAm 99.85 Est GFR (CKD-EPI)NonAf 86.15 Random Glucose 80 Calcium 8.8 Total Bilirubin 1.2 H AST 20 ALT 16 Alkaline Phosphatase 62 Total Protein 6.4 Albumin 3.5 Syphilis Serology COVID-19 ([facility]) Not detected 04/17/20 08:00 WBC RBC Hgb Hct MCV MCH MCHC RDW Plt Count MPV Sodium Potassium Chloride Carbon Dioxide Anion Gap BUN Creatinine Est GFR (CKD-EPI)AfAm Est GFR (CKD-EPI)NonAf Random Glucose Calcium Total Bilirubin AST ALT Alkaline Phosphatase Total Protein Albumin Syphilis Serology Non-reactive COVID-19 ([facility]) aaox3 ambulating no acute distress lungs CTA - Treatment Hospital Course: Detox Protocol Followed, Detoxed Safely, Responded well, Discharged Condition Good, Rehab Referral Accepted - Medication Discharge Medications: Ambulatory Orders Albuterol Sulfate Inhaler - [Ventolin Hfa Inhaler -] 1 - 2 inh PO Q4H PRN 03/26/20 - Diagnosis (1) Alcohol dependence with withdrawal, uncomplicated Current Visit: Yes Status: Chronic (2) Dehydration symptoms Current Visit: Yes Status: Acute (3) Opioid dependence with withdrawal Current Visit: Yes Status: Chronic (4) COPD (chronic obstructive pulmonary disease) Current Visit: Yes Status: Chronic Qualifiers: COPD type: unspecified COPD Qualified Code(s): J44.9 - Chronic obstructive pulmonary disease, unspecified (5) Cocaine use disorder Current Visit: Yes Status: Chronic (6) Cough Current Visit: Yes Status: Chronic (7) Nicotine dependence Current Visit: Yes Status: Chronic Qualifiers: Nicotine product type: cigarettes Substance use status: uncomplicated Qualified Code(s): F17.210 - Nicotine dependence, cigarettes, uncomplicated (8) Tinea pedis Current Visit: Yes Status: Chronic Qualifiers: Laterality: bilateral Qualified Code(s): B35.3 - Tinea pedis (9) Opioid use disorder Current Visit: No Status: Chronic - AMA Did Patient Leave Against Medical Advice: No
[2020-04-20] MEDS: guaiFENesin 600 MG TABLET.ER (FP) PO SCH (09:24)
[2020-04-20] MEDS: METHOCARBAMOL 500 MG TABLET PO SCH (09:24)
[2020-04-20] MEDS: PRENATAL VITAMINS W/ FOLIC ACID TABLET (FP) PO SCH (09:24)
[2020-04-20] MEDS: TOLNAFTATE 1% CREAM 15 GM TUBE TP SCH (09:25)
[2020-04-20 10:00] VITALS: BP 135/87; TEMP 98.1
[2020-04-20] MEDS ORDERED: METHADONE HCL 10 MG TABLET (FOR DETOX USE ONLY) PO ONE (10:00)
[2020-04-21] MEDS ORDERED: METHADONE HCL 5 MG TABLET (FOR DETOX USE ONLY) PO ONE (06:00)
== END 2020-04-20 11:39 | disposition home or self-care (01) | DRG 773 ==
LOC: YASAS 15:53 → Y6N 16:15 → UNDOADMIN 16:15 → Y6N 17:48
PROVIDERS: ADMIT Allergy & Immunology; ATTEND Allergy & Immunology
PROC: HZ2ZZZZ Detoxification Services for Substance Abuse Treatment (ICD-10-PCS; principal; 2020-04-16)
DX: F11.23 Opioid dependence with withdrawal (principal); F10.230 Alcohol dependence with withdrawal, uncomplicated; F14.20 Cocaine dependence, uncomplicated; F17.210 Nicotine dependence, cigarettes, uncomplicated; F41.9 Anxiety disorder, unspecified; F32.9 Major depressive disorder, single episode, unspecified; J44.9 Chronic obstructive pulmonary disease, unspecified; B35.3 Tinea pedis; R63.8 Other symptoms and signs concerning food and fluid intake; R05 Cough; Z56.0 Unemployment, unspecified; Z59.0 Homelessness
CPT/HCPCS: 36415; 80053; 85027; 86780; U0003

== ENCOUNTER 2021-01-31 12:29 | Inpatient (IN) | payer OTHER ==
[2021-01-31 13:48] VITALS: BMI 20.5
[2021-01-31] MEDS ORDERED: METHADONE HCL 10 MG TABLET (FOR DETOX USE ONLY) PO ONE (14:55)
[2021-01-31] MEDS ORDERED: MAGNESIUM CITRATE 300 ML BOTTLE PO PRN (14:55)
[2021-01-31] MEDS ORDERED: ACETAMINOPHEN 325 MG TABLET (FP) PO PRN ×2 (14:55)
[2021-01-31] MEDS ORDERED: MAGNESIUM HYDROX 2400MG/30ML ORAL SUSPENSION 30 ML CUP PO PRN (14:55)
[2021-01-31] MEDS ORDERED: ONDANSETRON *ODT* 4 MG TABLET SL PRN (14:55)
[2021-01-31] MEDS ORDERED: BISMUTH SUBSALICYLATE 262 MG/15 ML BTL PO PRN (14:55)
[2021-01-31] MEDS ORDERED: MAG HYDROX/AL HYDROX/SIMETH 30 ML UNIT-DOSE CUP PO PRN (14:55)
[2021-01-31] MEDS ORDERED: NICOTINE POLACRILEX 2 MG GUM BUC PRN (14:55)
[2021-01-31] MEDS ORDERED: MENTHOL/PHENOL 1 EACH UD MM PRN (14:55)
[2021-01-31] MEDS ORDERED: ALBUTEROL SO4 HFA INHALER IH PRN (14:55)
[2021-01-31] MEDS: hydrOXYzine PAMOATE 25 MG CAPSULE (FP) PO SCH ×2 (17:33→21:45)
[2021-01-31] MEDS: NICOTINE 14 MG/24 HOURS TOPICAL PATCH TD SCH (17:38)
[2021-01-31] MEDS: MELATONIN 5 MG TABLETS PO SCH (21:45)
[2021-01-31] MEDS: THIAMINE HCL 100 MG TABLET (FP) PO SCH (21:45)
[2021-02-01] MEDS: hydrOXYzine PAMOATE 25 MG CAPSULE (FP) PO SCH ×6 (07:10→23:16)
[2021-02-01 09:53] LABS: HEMATOCRIT 42.4 % (35.4-49); HEMOGLOBIN 13.8 GM/dL (11.7-16.9); MCH 29.8 pg (25.7-33.7); MCHC 32.6 g/dl (32.0-35.9); MEAN CELL VOLUME 91.5 fl (80-96); MEAN PLT VOLUME 8.8 fl (7.5-11.1); PLATELET COUNT 211 10^3/uL (134-434); RBC 4.63 M/mm3 (4.00-5.60); RDW 15.3 % (11.9-15.9); WHITE BLOOD COUNT 5.7 K/mm3 (4.0-10.0)
[2021-02-01] MEDS ORDERED: METHADONE (DETOX) 20 MG, METHADONE (DETOX) 5 MG PO ONE (10:00)
[2021-02-01] MEDS ORDERED: METHADONE HCL 10 MG TABLET (FOR DETOX USE ONLY) ONE (10:09)
[2021-02-01] MEDS ORDERED: METHADONE HCL 5 MG TABLET (FOR DETOX USE ONLY) ONE (10:09)
[2021-02-01 10:16] LABS: BLOOD UREA NITROGEN 20.8 mg/dL (7-18); CALCIUM 8.9 mg/dL (8.5-10.1)
[2021-02-01 10:17] LABS: ALBUMIN 4.2 g/dl (3.4-5.0)
[2021-02-01 10:20] LABS: CREATININE 0.9 mg/dL (0.55-1.3)
[2021-02-01 10:21] LABS: BILIRUBIN,TOTAL 0.4 mg/dL (0.2-1); TOT PROT 7.2 g/dl (6.4-8.2)
[2021-02-01] MEDS: cloNIDine HCL 0.1 MG TABLET PO PRN (10:53)
[2021-02-01] MEDS: METHOCARBAMOL 500 MG TABLET PO PRN (10:53)
[2021-02-01] MEDS: PRENATAL VITAMINS W/ FOLIC ACID TABLET (FP) PO SCH (10:53)
[2021-02-01] MEDS: NICOTINE 14 MG/24 HOURS TOPICAL PATCH TD SCH (10:54)
[2021-02-01] MEDS: ALBUTEROL SO4 HFA INHALER IH PRN (10:58)
[2021-02-01] MEDS: MELATONIN 5 MG TABLETS PO SCH ×2 (23:07→23:16)
[2021-02-01] MEDS: THIAMINE HCL 100 MG TABLET (FP) PO SCH ×2 (23:08→23:16)
[2021-02-02] MEDS: hydrOXYzine PAMOATE 25 MG CAPSULE (FP) PO SCH ×6 (07:11→23:46)
[2021-02-02] MEDS ORDERED: METHADONE HCL 10 MG TABLET (FOR DETOX USE ONLY) PO ONE (10:00)
[2021-02-02] MEDS: cloNIDine HCL 0.1 MG TABLET PO PRN (10:38)
[2021-02-02] MEDS: METHOCARBAMOL 500 MG TABLET PO PRN ×2 (10:38→18:26)
[2021-02-02] MEDS: NICOTINE 14 MG/24 HOURS TOPICAL PATCH TD SCH (10:38)
[2021-02-02] MEDS: PRENATAL VITAMINS W/ FOLIC ACID TABLET (FP) PO SCH (10:38)
[2021-02-02] MEDS: ALBUTEROL SO4 HFA INHALER IH PRN (10:39)
[2021-02-02] MEDS: IBUPROFEN 400 MG TABLET (FP) PO PRN (18:26)
[2021-02-02] MEDS: MELATONIN 5 MG TABLETS PO SCH ×2 (23:05→23:46)
[2021-02-02] MEDS: THIAMINE HCL 100 MG TABLET (FP) PO SCH ×2 (23:05→23:46)
[2021-02-03] MEDS: hydrOXYzine PAMOATE 25 MG CAPSULE (FP) PO SCH ×5 (07:12→22:23)
[2021-02-03] MEDS ORDERED: METHADONE HCL 5 MG TABLET (FOR DETOX USE ONLY) ONE (10:00)
[2021-02-03] MEDS ORDERED: METHADONE (DETOX) 10 MG, METHADONE (DETOX) 5 MG PO ONE (10:00)
[2021-02-03] MEDS ORDERED: METHADONE HCL 10 MG TABLET (FOR DETOX USE ONLY) ONE (10:00)
[2021-02-03] MEDS: PRENATAL VITAMINS W/ FOLIC ACID TABLET (FP) PO SCH (10:16)
[2021-02-03] MEDS: METHOCARBAMOL 500 MG TABLET PO PRN ×2 (10:16→18:49)
[2021-02-03] MEDS: NICOTINE 14 MG/24 HOURS TOPICAL PATCH TD SCH (10:16)
[2021-02-03] MEDS: ALBUTEROL SO4 HFA INHALER IH PRN (18:49)
[2021-02-03] MEDS: MELATONIN 5 MG TABLETS PO SCH (22:23)
[2021-02-03] MEDS: THIAMINE HCL 100 MG TABLET (FP) PO SCH (22:23)
[2021-02-04] MEDS: hydrOXYzine PAMOATE 25 MG CAPSULE (FP) PO SCH ×4 (07:32→17:34)
[2021-02-04] MEDS ORDERED: METHADONE HCL 10 MG TABLET (FOR DETOX USE ONLY) PO ONE (10:00)
[2021-02-04] MEDS: PRENATAL VITAMINS W/ FOLIC ACID TABLET (FP) PO SCH (10:12)
[2021-02-04] MEDS: ALBUTEROL SO4 HFA INHALER IH PRN (10:12)
[2021-02-04] MEDS: METHOCARBAMOL 500 MG TABLET PO PRN (10:12)
[2021-02-04] MEDS: NICOTINE 14 MG/24 HOURS TOPICAL PATCH TD SCH (10:13)
[2021-02-04] MEDS: IBUPROFEN 400 MG TABLET (FP) PO PRN (14:49)
[2021-02-04 18:19] VITALS: BP 106/57; PULSE 64; TEMP 96.6
[2021-02-05] MEDS ORDERED: METHADONE HCL 5 MG TABLET (FOR DETOX USE ONLY) PO ONE (06:00)
== END 2021-02-04 17:35 | disposition left against medical advice (07) | DRG 770 ==
LOC: YASAS 12:29 → Y3N 15:16
PROVIDERS: ADMIT Allergy & Immunology; ATTEND Allergy & Immunology
PROC: HZ2ZZZZ Detoxification Services for Substance Abuse Treatment (ICD-10-PCS; principal; 2021-01-31)
DX: F11.23 Opioid dependence with withdrawal (principal); F10.220 Alcohol dependence with intoxication, uncomplicated; R79.89 Other specified abnormal findings of blood chemistry; R74.01 Elevation of levels of liver transaminase levels
CPT/HCPCS: 36415; 80053; 85027; 86780; 93005; 93010; C9803; J0735; U0003; U0005

== ENCOUNTER 2021-12-10 15:37 | Inpatient (IN) | payer OTHER ==
[2021-12-10 16:52] VITALS: BMI 24.5
[2021-12-10] MEDS ORDERED: ALBUTEROL SO4 HFA INHALER IH PRN (18:00)
[2021-12-10] MEDS ORDERED: MAGNESIUM HYDROX 2400MG/30ML ORAL SUSPENSION 30 ML CUP PO PRN (18:01)
[2021-12-10] MEDS ORDERED: MAG HYDROX/AL HYDROX/SIMETH 30 ML UNIT-DOSE CUP PO PRN (18:01)
[2021-12-10] MEDS ORDERED: ONDANSETRON *ODT* 4 MG TABLET SL PRN (18:01)
[2021-12-10] MEDS ORDERED: NICOTINE POLACRILEX 2 MG GUM BUC PRN (18:01)
[2021-12-10] MEDS ORDERED: IBUPROFEN 400 MG TABLET (FP) PO PRN (18:01)
[2021-12-10] MEDS ORDERED: MELATONIN 5 MG TABLETS PO PRN (18:01)
[2021-12-10] MEDS ORDERED: DICYCLOMINE HCL 10 MG CAPSULE PO PRN (18:01)
[2021-12-10] MEDS ORDERED: BISMUTH SUBSALICYLATE 524 MG/30 ML PO PRN (18:01)
[2021-12-10] MEDS ORDERED: guaiFENesin 200 MG/10 ML 10 ML UNIT-DOSE CUPS PO PRN (18:01)
[2021-12-10] MEDS ORDERED: hydrOXYzine PAMOATE 25 MG CAPSULE (FP) PO PRN (18:01)
[2021-12-10] MEDS ORDERED: MAGNESIUM CITRATE 300 ML BOTTLE PO PRN (18:01)
[2021-12-10] MEDS ORDERED: LOPERAMIDE HCL 2 MG CAPSULE PO PRN (18:01)
[2021-12-10] MEDS ORDERED: P-EPHED 60MG/TRIPROLIDI 2.5MG TABLET PO PRN (18:01)
[2021-12-10] MEDS ORDERED: ACETAMINOPHEN 325 MG TABLET (FP) PO PRN ×2 (18:01)
[2021-12-10] MEDS ORDERED: BENZOCAINE/MENTHOL (CHLORASEPTIC ) LOZENGE MM PRN (18:01)
[2021-12-10] MEDS ORDERED: cloNIDine HCL 0.1 MG TABLET PO PRN (18:03)
[2021-12-10] MEDS ORDERED: methaDONE HCL 10 MG TABLET (FOR DETOX USE ONLY) PO ONE (21:00)
[2021-12-10] MEDS: diazePAM 5 MG TABLET PO PRN (23:04)
[2021-12-10] MEDS: THIAMINE HCL 100 MG TABLET (FP) PO SCH (23:05)
[2021-12-10] MEDS: METHOCARBAMOL 500 MG TABLET PO PRN (23:05)
[2021-12-11] MEDS ORDERED: methaDONE HCL 10 MG TABLET (FOR DETOX USE ONLY) ONE (09:08)
[2021-12-11] MEDS: PRENATAL VITAMINS W/ FOLIC ACID TABLET (FP) PO SCH (10:15)
[2021-12-11 10:55] LABS: HEMATOCRIT 39.4 % (35.4-49); MCH 29.9 pg (25.7-33.7); MCHC 32.9 g/dl (32.0-35.9); MEAN CELL VOLUME 90.8 fl (80-96); MEAN PLT VOLUME 8.1 fl (7.5-11.1); PLATELET COUNT 206 10^3/uL (134-434); RBC 4.34 M/mm3 (4.00-5.60); RDW 14.9 % (11.9-15.9)
[2021-12-11 11:39] LABS: CALCIUM 8.9 mg/dL (8.5-10.1)
[2021-12-11 11:40] LABS: ALBUMIN 3.5 g/dl (3.4-5.0); BLOOD UREA NITROGEN 16.2 mg/dL (7-18)
[2021-12-11 11:44] LABS: BILIRUBIN,TOTAL 0.4 mg/dL (0.2-1); TOT PROT 6.6 g/dl (6.4-8.2)
[2021-12-11] MEDS: THIAMINE HCL 100 MG TABLET (FP) PO SCH (23:42)
[2021-12-12] MEDS ORDERED: methaDONE HCL 10 MG TABLET (FOR DETOX USE ONLY) PO ONE (10:00)
[2021-12-12] MEDS: PRENATAL VITAMINS W/ FOLIC ACID TABLET (FP) PO SCH (10:24)
[2021-12-12] MEDS: diazePAM 5 MG TABLET PO PRN (10:25)
[2021-12-12] MEDS: THIAMINE HCL 100 MG TABLET (FP) PO SCH (23:03)
[2021-12-13] MEDS ORDERED: methaDONE HCL 10 MG TABLET (FOR DETOX USE ONLY) ONE (09:10)
[2021-12-13] MEDS: PRENATAL VITAMINS W/ FOLIC ACID TABLET (FP) PO SCH (10:09)
[2021-12-13] MEDS: diazePAM 5 MG TABLET PO PRN (10:10)
[2021-12-13 17:09] LABS: SARS-CoV-2 NAA Not Detected (Not Detected)
[2021-12-13] MEDS: THIAMINE HCL 100 MG TABLET (FP) PO SCH (23:16)
[2021-12-14] MEDS ORDERED: methaDONE HCL 10 MG TABLET (FOR DETOX USE ONLY) PO ONE (10:00)
[2021-12-14] MEDS: PRENATAL VITAMINS W/ FOLIC ACID TABLET (FP) PO SCH (10:17)
[2021-12-14] MEDS: METHOCARBAMOL 500 MG TABLET PO PRN ×2 (10:19→17:57)
[2021-12-14] MEDS: THIAMINE HCL 100 MG TABLET (FP) PO SCH (23:12)
[2021-12-15 09:20] VITALS: BP 135/72; PULSE 56; TEMP 97.8
[2021-12-15] MEDS: PRENATAL VITAMINS W/ FOLIC ACID TABLET (FP) PO SCH (10:33)
== END 2021-12-15 11:55 | disposition home or self-care (01) | DRG 773 ==
LOC: YASAS 15:37 → Y6N 21:41
PROVIDERS: ADMIT Allergy & Immunology; ATTEND Surgery
PROC: HZ2ZZZZ Detoxification Services for Substance Abuse Treatment (ICD-10-PCS; principal; 2021-12-10)
DX: F11.23 Opioid dependence with withdrawal (principal); F14.20 Cocaine dependence, uncomplicated; F10.10 Alcohol abuse, uncomplicated; F12.10 Cannabis abuse, uncomplicated; F17.210 Nicotine dependence, cigarettes, uncomplicated; J45.909 Unspecified asthma, uncomplicated; B35.3 Tinea pedis
CPT/HCPCS: 36415; 80053; 83036; 85027; 86780; C9803-CS; J0735; U0003; U0005

== ENCOUNTER 2022-01-27 11:52 | Inpatient (IN) | payer OTHER ==
[2022-01-27 13:01] VITALS: BMI 22.9
[2022-01-27] MEDS ORDERED: ONDANSETRON *ODT* 4 MG TABLET SL PRN (13:22)
[2022-01-27] MEDS ORDERED: ACETAMINOPHEN 325 MG TABLET (FP) PO PRN ×2 (13:22)
[2022-01-27] MEDS ORDERED: MAGNESIUM CITRATE 300 ML BOTTLE PO PRN (13:22)
[2022-01-27] MEDS ORDERED: BENZOCAINE/MENTHOL (CHLORASEPTIC ) LOZENGE MM PRN (13:22)
[2022-01-27] MEDS ORDERED: IBUPROFEN 600 MG TABLET (FP) PO PRN (13:22)
[2022-01-27] MEDS ORDERED: NICOTINE 10 MG CARTRIDGE (INHALER) IH PRN (13:22)
[2022-01-27] MEDS ORDERED: MAGNESIUM HYDROX 2400MG/30ML ORAL SUSPENSION 30 ML CUP PO PRN (13:22)
[2022-01-27] MEDS ORDERED: MAG HYDROX/AL HYDROX/SIMETH 30 ML UNIT-DOSE CUP PO PRN (13:22)
[2022-01-27] MEDS ORDERED: IBUPROFEN 400 MG TABLET (FP) PO PRN (13:22)
[2022-01-27] MEDS ORDERED: LOPERAMIDE HCL 2 MG CAPSULE PO PRN (13:22)
[2022-01-27] MEDS ORDERED: BISMUTH SUBSALICYLATE 524 MG/30 ML PO PRN (13:22)
[2022-01-27] MEDS ORDERED: cloNIDine HCL 0.1 MG TABLET PO PRN (13:22)
[2022-01-27] MEDS ORDERED: DICYCLOMINE HCL 10 MG CAPSULE PO PRN (13:22)
[2022-01-27] MEDS ORDERED: NALOXONE HCL (KLOXXADO) 8 MG SPRAY NS PRN (13:25)
[2022-01-27] MEDS ORDERED: ALBUTEROL SO4 HFA INHALER IH PRN (13:25)
[2022-01-27] MEDS ORDERED: methaDONE HCL 10 MG TABLET (FOR DETOX USE ONLY) PO ONE (14:00)
[2022-01-27] MEDS: METHOCARBAMOL 500 MG TABLET PO PRN (14:39)
[2022-01-27] MEDS: hydrOXYzine PAMOATE 25 MG CAPSULE (FP) PO SCH ×2 (14:41→19:19)
[2022-01-27] MEDS: PRENATAL VITAMINS W/ FOLIC ACID TABLET (FP) PO SCH (14:41)
[2022-01-27 20:28] LABS: HEMATOCRIT 44.3 % (35.4-49); HEMOGLOBIN 14.5 GM/dL (11.7-16.9); MCH 29.7 pg (25.7-33.7); MCHC 32.6 g/dl (32.0-35.9); MEAN CELL VOLUME 91.1 fl (80-96); MEAN PLT VOLUME 9.2 fl (7.5-11.1); PLATELET COUNT 247 10^3/uL (134-434); RBC 4.87 M/mm3 (4.00-5.60); RDW 15.1 % (11.9-15.9); WHITE BLOOD COUNT 9.2 K/mm3 (4.0-10.0)
[2022-01-27 20:30] LABS: BLOOD UREA NITROGEN 22.8 mg/dL (7-18); CALCIUM 9.5 mg/dL (8.5-10.1)
[2022-01-27 20:34] LABS: CREATININE 1.2 mg/dL (0.55-1.3)
[2022-01-27 20:35] LABS: TOT PROT 7.2 g/dl (6.4-8.2)
[2022-01-28] MEDS: MELATONIN 5 MG TABLETS PO SCH ×2 (00:08→23:30)
[2022-01-28] MEDS: THIAMINE HCL 100 MG TABLET (FP) PO SCH ×2 (00:08→23:30)
[2022-01-28] MEDS: hydrOXYzine PAMOATE 25 MG CAPSULE (FP) PO SCH ×6 (00:08→23:30)
[2022-01-28] MEDS ORDERED: methaDONE HCL 10 MG TABLET (FOR DETOX USE ONLY) ONE (09:30)
[2022-01-28] MEDS: PRENATAL VITAMINS W/ FOLIC ACID TABLET (FP) PO SCH (10:11)
[2022-01-28] MEDS: NICOTINE 14 MG/24 HOURS TOPICAL PATCH TD SCH (10:11)
[2022-01-28] MEDS: METHOCARBAMOL 500 MG TABLET PO PRN (10:11)
[2022-01-29] MEDS: hydrOXYzine PAMOATE 25 MG CAPSULE (FP) PO SCH ×5 (06:15→23:55)
[2022-01-29] MEDS ORDERED: methaDONE HCL 10 MG TABLET (FOR DETOX USE ONLY) PO ONE (10:00)
[2022-01-29] MEDS: PRENATAL VITAMINS W/ FOLIC ACID TABLET (FP) PO SCH (10:17)
[2022-01-29] MEDS: NICOTINE 14 MG/24 HOURS TOPICAL PATCH TD SCH (10:19)
[2022-01-29] MEDS: METHOCARBAMOL 500 MG TABLET PO PRN (10:19)
[2022-01-29] MEDS: THIAMINE HCL 100 MG TABLET (FP) PO SCH (23:52)
[2022-01-29] MEDS: MELATONIN 5 MG TABLETS PO SCH (23:52)
[2022-01-30] MEDS: hydrOXYzine PAMOATE 25 MG CAPSULE (FP) PO SCH ×5 (06:01→23:52)
[2022-01-30] MEDS ORDERED: methaDONE HCL 10 MG TABLET (FOR DETOX USE ONLY) ONE (09:06)
[2022-01-30] MEDS: METHOCARBAMOL 500 MG TABLET PO PRN (10:11)
[2022-01-30] MEDS: PRENATAL VITAMINS W/ FOLIC ACID TABLET (FP) PO SCH (10:11)
[2022-01-30] MEDS: NICOTINE 14 MG/24 HOURS TOPICAL PATCH TD SCH (10:12)
[2022-01-30] MEDS: LISINOPRIL 10 MG TABLET PO SCH ×2 (10:49→23:52)
[2022-01-30] MEDS ORDERED: amLODIPine BESYLATE 5 MG TABLET (FP) PO SCH (11:30)
[2022-01-30] MEDS: MELATONIN 5 MG TABLETS PO SCH (23:52)
[2022-01-30] MEDS: THIAMINE HCL 100 MG TABLET (FP) PO SCH (23:52)
[2022-01-31] MEDS: hydrOXYzine PAMOATE 25 MG CAPSULE (FP) PO SCH ×4 (06:40→14:32)
[2022-01-31 09:58] VITALS: BP 117/72; PULSE 72; TEMP 97.8
[2022-01-31] MEDS ORDERED: methaDONE HCL 10 MG TABLET (FOR DETOX USE ONLY) PO ONE (10:00)
[2022-01-31] MEDS: METHOCARBAMOL 500 MG TABLET PO PRN (10:13)
[2022-01-31] MEDS: LISINOPRIL 10 MG TABLET PO SCH (10:13)
[2022-01-31] MEDS: PRENATAL VITAMINS W/ FOLIC ACID TABLET (FP) PO SCH (10:13)
[2022-01-31] MEDS: NICOTINE 14 MG/24 HOURS TOPICAL PATCH TD SCH (10:14)
== END 2022-01-31 15:20 | disposition home or self-care (01) | DRG 773 ==
LOC: YASAS 11:52 → Y6N 13:36
PROVIDERS: ADMIT Allergy & Immunology; ATTEND Surgery
PROC: HZ2ZZZZ Detoxification Services for Substance Abuse Treatment (ICD-10-PCS; principal; 2022-01-27)
DX: F11.23 Opioid dependence with withdrawal (principal); F14.20 Cocaine dependence, uncomplicated; F17.213 Nicotine dependence, cigarettes, with withdrawal; R03.0 Elevated blood-pressure reading, without diagnosis of hypertension; J44.9 Chronic obstructive pulmonary disease, unspecified; J45.20 Mild intermittent asthma, uncomplicated; R00.0 Tachycardia, unspecified; B35.3 Tinea pedis; Z59.00 Homelessness unspecified
CPT/HCPCS: 36415; 80053; 84520; 85027; 86780; C9803-CS; U0003; U0005

== ENCOUNTER 2023-02-02 12:18 | Inpatient (IN) | payer OTHER ==
[2023-02-02 13:06] VITALS: BMI 26.3
[2023-02-02] MEDS ORDERED: ONDANSETRON *ODT* 4 MG TABLET SL PRN (14:54)
[2023-02-02] MEDS ORDERED: guaiFENesin 600 MG TABLET.ER (FP) PO PRN (14:54)
[2023-02-02] MEDS ORDERED: LOPERAMIDE HCL 2 MG CAPSULE PO PRN (14:54)
[2023-02-02] MEDS ORDERED: MAGNESIUM HYDROX 2400MG/30ML ORAL SUSPENSION 30 ML CUP PO PRN (14:54)
[2023-02-02] MEDS ORDERED: MAG HYDROX/AL HYDROX/SIMETH 30 ML UNIT-DOSE CUP PO PRN (14:54)
[2023-02-02] MEDS ORDERED: NALOXONE HCL 0.4 MG/ML VIAL IM PRN (14:54)
[2023-02-02] MEDS ORDERED: NALOXONE HCL (KLOXXADO) 8 MG SPRAY NS PRN (14:54)
[2023-02-02] MEDS ORDERED: BENZOCAINE/MENTHOL (CHLORASEPTIC ) LOZENGE MM PRN (14:54)
[2023-02-02] MEDS ORDERED: NICOTINE 10 MG CARTRIDGE (INHALER) IH PRN (14:54)
[2023-02-02] MEDS ORDERED: IBUPROFEN 400 MG TABLET (FP) PO PRN (14:54)
[2023-02-02] MEDS ORDERED: POLYETHYLENE GLYCOL (HEALTHYLAX) 3350 17 GM PACKET PO PRN (14:54)
[2023-02-02] MEDS ORDERED: IBUPROFEN 600 MG TABLET (FP) PO PRN (14:54)
[2023-02-02] MEDS ORDERED: ACETAMINOPHEN 325 MG TABLET (FP) PO PRN (14:54)
[2023-02-02] MEDS ORDERED: DICYCLOMINE HCL 10 MG CAPSULE PO PRN (14:54)
[2023-02-02] MEDS ORDERED: BENZONATATE 200 MG CAPSULE PO PRN (14:54)
[2023-02-02] MEDS ORDERED: BISMUTH SUBSALICYLATE 524 MG/30 ML PO PRN (14:54)
[2023-02-02] MEDS ORDERED: cloNIDine HCL 0.1 MG TABLET PO PRN (14:58)
[2023-02-02] MEDS ORDERED: ALBUTEROL SO4 HFA INHALER IH PRN (15:12)
[2023-02-02] MEDS ORDERED: methaDONE HCL 10 MG TABLET (FOR DETOX USE ONLY) PO ONE ×2 (16:00→17:30)
[2023-02-02] MEDS: THIAMINE HCL 100 MG TABLET (FP) PO SCH (22:31)
[2023-02-02] MEDS: MELATONIN 5 MG TABLETS PO SCH (22:32)
[2023-02-03] MEDS: PRENATAL VITAMINS W/ FOLIC ACID TABLET (FP) PO SCH (10:21)
[2023-02-03] MEDS: NICOTINE 14 MG/24 HOURS TOPICAL PATCH TD SCH (10:21)
[2023-02-03] MEDS ORDERED: ALBUTEROL SO4 0.083% IH SOL 2.5 MG/3 ML VIAL.NEB. NEB PRN (10:28)
[2023-02-03 11:07] LABS: HEMATOCRIT 41.1 % (35.4-49); HEMOGLOBIN 13.1 GM/dL (11.7-16.9); MCH 29.6 pg (25.7-33.7); MEAN CELL VOLUME 92.5 fl (80-96); MEAN PLT VOLUME 8.8 fl (7.5-11.1); PLATELET COUNT 193 10^3/uL (134-434); RBC 4.44 M/mm3 (4.00-5.60); RDW 14.7 % (11.9-15.9)
[2023-02-03 11:21] LABS: POTASSIUM 3.7 mmol/L (3.5-5.1)
[2023-02-03 11:26] LABS: ALBUMIN 3.1 g/dl (3.4-5.0); CALCIUM 8.7 mg/dL (8.5-10.1)
[2023-02-03 11:27] LABS: BLOOD UREA NITROGEN 14.3 mg/dL (7-18)
[2023-02-03 11:29] LABS: CREATININE 0.8 mg/dL (0.55-1.3)
[2023-02-03 11:31] LABS: BILIRUBIN,TOTAL 0.3 mg/dL (0.2-1); TOT PROT 5.8 g/dl (6.4-8.2)
[2023-02-03] MEDS: ALBUTEROL SO4 HFA INHALER IH PRN ×2 (13:34→20:53)
[2023-02-03] MEDS: METHOCARBAMOL 500 MG TABLET PO PRN (13:42)
[2023-02-03] MEDS: THIAMINE HCL 100 MG TABLET (FP) PO SCH (23:00)
[2023-02-03] MEDS: BUDESONIDE/FORMETEROL FUMARATE 160/4.5 mcg INHALER IH SCH (23:00)
[2023-02-03] MEDS: MELATONIN 5 MG TABLETS PO SCH (23:00)
[2023-02-04] MEDS ORDERED: methaDONE HCL 10 MG TABLET (FOR DETOX USE ONLY) PO ONE (10:00)
[2023-02-04] MEDS: ALBUTEROL SO4 HFA INHALER IH PRN (10:13)
[2023-02-04] MEDS: PRENATAL VITAMINS W/ FOLIC ACID TABLET (FP) PO SCH (10:14)
[2023-02-04] MEDS: NICOTINE 14 MG/24 HOURS TOPICAL PATCH TD SCH (10:14)
[2023-02-04] MEDS: METHOCARBAMOL 500 MG TABLET PO PRN (10:14)
[2023-02-04] MEDS: amLODIPine BESYLATE 5 MG TABLET (FP) PO SCH (10:14)
[2023-02-04] MEDS: BUDESONIDE/FORMETEROL FUMARATE 160/4.5 mcg INHALER IH SCH ×2 (10:52→22:27)
[2023-02-04] MEDS: MELATONIN 5 MG TABLETS PO SCH (22:27)
[2023-02-04] MEDS: THIAMINE HCL 100 MG TABLET (FP) PO SCH (22:27)
[2023-02-05] MEDS: PRENATAL VITAMINS W/ FOLIC ACID TABLET (FP) PO SCH (10:03)
[2023-02-05] MEDS: METHOCARBAMOL 500 MG TABLET PO PRN ×2 (10:03→22:23)
[2023-02-05] MEDS: BUDESONIDE/FORMETEROL FUMARATE 160/4.5 mcg INHALER IH SCH ×2 (10:03→22:23)
[2023-02-05] MEDS: amLODIPine BESYLATE 5 MG TABLET (FP) PO SCH (10:03)
[2023-02-05] MEDS: NICOTINE 14 MG/24 HOURS TOPICAL PATCH TD SCH (10:06)
[2023-02-05] MEDS: THIAMINE HCL 100 MG TABLET (FP) PO SCH (22:23)
[2023-02-05] MEDS: MELATONIN 5 MG TABLETS PO SCH (22:23)
[2023-02-06] MEDS: NICOTINE 14 MG/24 HOURS TOPICAL PATCH TD SCH (09:51)
[2023-02-06] MEDS: METHOCARBAMOL 500 MG TABLET PO PRN ×2 (09:52→17:09)
[2023-02-06] MEDS: amLODIPine BESYLATE 5 MG TABLET (FP) PO SCH (09:52)
[2023-02-06] MEDS: PRENATAL VITAMINS W/ FOLIC ACID TABLET (FP) PO SCH (09:52)
[2023-02-06] MEDS: BUDESONIDE/FORMETEROL FUMARATE 160/4.5 mcg INHALER IH SCH ×2 (09:54→23:15)
[2023-02-06] MEDS ORDERED: methaDONE HCL 10 MG TABLET (FOR DETOX USE ONLY) PO ONE (10:00)
[2023-02-06] MEDS: THIAMINE HCL 100 MG TABLET (FP) PO SCH (23:15)
[2023-02-06] MEDS: MELATONIN 5 MG TABLETS PO SCH (23:15)
[2023-02-07 09:32] VITALS: BP 139/81; PULSE 58; RESP 18; TEMP 97.7
[2023-02-07] MEDS: amLODIPine BESYLATE 5 MG TABLET (FP) PO SCH (09:58)
[2023-02-07] MEDS: BUDESONIDE/FORMETEROL FUMARATE 160/4.5 mcg INHALER IH SCH (09:58)
[2023-02-07] MEDS: PRENATAL VITAMINS W/ FOLIC ACID TABLET (FP) PO SCH (09:58)
[2023-02-07] MEDS: NICOTINE 14 MG/24 HOURS TOPICAL PATCH TD SCH (10:00)
== END 2023-02-07 10:00 | disposition home or self-care (01) | DRG 773 ==
LOC: YASAS 12:18 → Y6N 16:38
PROVIDERS: ADMIT Allergy & Immunology; ATTEND Surgery
PROC: HZ2ZZZZ Detoxification Services for Substance Abuse Treatment (ICD-10-PCS; principal; 2023-02-02)
DX: F11.23 Opioid dependence with withdrawal (principal); F14.20 Cocaine dependence, uncomplicated; F17.210 Nicotine dependence, cigarettes, uncomplicated; I10 Essential (primary) hypertension; J44.9 Chronic obstructive pulmonary disease, unspecified; J45.20 Mild intermittent asthma, uncomplicated
CPT/HCPCS: 36415; 80053; 85027; 86780; 87635; 93005; 93010

== ENCOUNTER 2023-04-09 09:44 | Inpatient (IN) | payer OTHER ==
[2023-04-09 12:25] VITALS: BMI 24.4
[2023-04-09] MEDS ORDERED: cloNIDine HCL 0.1 MG TABLET PO PRN (12:28)
[2023-04-09] MEDS ORDERED: IBUPROFEN 600 MG TABLET (FP) PO PRN (12:28)
[2023-04-09] MEDS ORDERED: NALOXONE HCL 0.4 MG/ML VIAL IM PRN (12:28)
[2023-04-09] MEDS ORDERED: BENZONATATE 200 MG CAPSULE PO PRN (12:28)
[2023-04-09] MEDS ORDERED: POLYETHYLENE GLYCOL (HEALTHYLAX) 3350 17 GM PACKET PO PRN (12:28)
[2023-04-09] MEDS ORDERED: MAG HYDROX/AL HYDROX/SIMETH 30 ML UNIT-DOSE CUP PO PRN (12:28)
[2023-04-09] MEDS ORDERED: BENZOCAINE/MENTHOL (CHLORASEPTIC ) LOZENGE MM PRN (12:28)
[2023-04-09] MEDS ORDERED: IBUPROFEN 400 MG TABLET (FP) PO PRN (12:28)
[2023-04-09] MEDS ORDERED: MAGNESIUM HYDROX 2400MG/30ML ORAL SUSPENSION 30 ML CUP PO PRN (12:28)
[2023-04-09] MEDS ORDERED: LOPERAMIDE HCL 2 MG CAPSULE PO PRN (12:28)
[2023-04-09] MEDS ORDERED: guaiFENesin 600 MG TABLET.ER (FP) PO PRN (12:28)
[2023-04-09] MEDS ORDERED: ACETAMINOPHEN 325 MG TABLET (FP) PO PRN (12:28)
[2023-04-09] MEDS ORDERED: BISMUTH SUBSALICYLATE 524 MG/30 ML PO PRN (12:28)
[2023-04-09] MEDS ORDERED: ONDANSETRON *ODT* 4 MG TABLET SL PRN (12:28)
[2023-04-09] MEDS ORDERED: DICYCLOMINE HCL 10 MG CAPSULE PO PRN (12:28)
[2023-04-09] MEDS ORDERED: NALOXONE HCL (KLOXXADO) 8 MG SPRAY NS PRN (12:28)
[2023-04-09] MEDS ORDERED: methaDONE HCL 10 MG TABLET (FOR DETOX USE ONLY) ONE (14:20)
[2023-04-09] MEDS ORDERED: methaDONE HCL 10 MG TABLET (FOR DETOX USE ONLY) PO ONE (14:30)
[2023-04-09] MEDS: PRENATAL VITAMINS W/ FOLIC ACID TABLET (FP) PO SCH (14:37)
[2023-04-09] MEDS: ALBUTEROL SO4 HFA INHALER IH PRN (18:58)
[2023-04-09] MEDS: MELATONIN 5 MG TABLETS PO SCH (23:36)
[2023-04-09] MEDS: THIAMINE HCL 100 MG TABLET (FP) PO SCH (23:37)
[2023-04-10 06:56] LABS: POTASSIUM 3.8 mmol/L (3.5-5.1)
[2023-04-10 06:59] LABS: ALBUMIN 4.5 g/dl (3.4-5.0); BLOOD UREA NITROGEN 25.7 mg/dL (7-18); CALCIUM 9.1 mg/dL (8.5-10.1); HEMATOCRIT 45.3 % (35.4-49); HEMOGLOBIN 15.4 GM/dL (11.7-16.9); MCH 30.7 pg (25.7-33.7); MEAN CELL VOLUME 90.3 fl (80-96); MEAN PLT VOLUME 9.1 fl (7.5-11.1); PLATELET COUNT 147 10^3/uL (134-434); RBC 5.02 M/mm3 (4.00-5.60); WHITE BLOOD COUNT 11.9 K/mm3 (4.0-10.0)
[2023-04-10 07:02] LABS: CREATININE 2.1 mg/dL (0.55-1.3)
[2023-04-10 07:04] LABS: BILIRUBIN,TOTAL 0.7 mg/dL (0.2-1); TOT PROT 8.2 g/dl (6.4-8.2)
[2023-04-10] MEDS: PRENATAL VITAMINS W/ FOLIC ACID TABLET (FP) PO SCH (10:08)
[2023-04-10] MEDS: hydrOXYzine PAMOATE 25 MG CAPSULE (FP) PO PRN (10:09)
[2023-04-10] MEDS: METHOCARBAMOL 500 MG TABLET PO PRN (10:09)
[2023-04-10] MEDS: ALBUTEROL SO4 HFA INHALER IH PRN ×2 (12:35→19:32)
[2023-04-10] MEDS: THIAMINE HCL 100 MG TABLET (FP) PO SCH (23:24)
[2023-04-10] MEDS: MELATONIN 5 MG TABLETS PO SCH (23:24)
[2023-04-11] MEDS: ALBUTEROL SO4 HFA INHALER IH PRN ×2 (00:57→09:26)
[2023-04-11] MEDS ORDERED: methaDONE HCL 10 MG TABLET (FOR DETOX USE ONLY) PO ONE (10:00)
[2023-04-11] MEDS: hydrOXYzine PAMOATE 25 MG CAPSULE (FP) PO PRN (10:10)
[2023-04-11] MEDS: METHOCARBAMOL 500 MG TABLET PO PRN (10:10)
[2023-04-11] MEDS: PRENATAL VITAMINS W/ FOLIC ACID TABLET (FP) PO SCH (10:10)
[2023-04-11] MEDS: THIAMINE HCL 100 MG TABLET (FP) PO SCH (22:27)
[2023-04-11] MEDS: MELATONIN 5 MG TABLETS PO SCH (22:27)
[2023-04-12] MEDS: ALBUTEROL SO4 HFA INHALER IH PRN ×2 (00:28→08:39)
[2023-04-12] MEDS: PRENATAL VITAMINS W/ FOLIC ACID TABLET (FP) PO SCH (10:31)
[2023-04-12] MEDS: THIAMINE HCL 100 MG TABLET (FP) PO SCH (22:28)
[2023-04-12] MEDS: MELATONIN 5 MG TABLETS PO SCH (22:28)
[2023-04-13] MEDS: ALBUTEROL SO4 HFA INHALER IH PRN ×2 (05:31→17:13)
[2023-04-13] MEDS ORDERED: methaDONE HCL 10 MG TABLET (FOR DETOX USE ONLY) PO ONE (10:00)
[2023-04-13] MEDS: PRENATAL VITAMINS W/ FOLIC ACID TABLET (FP) PO SCH (10:15)
[2023-04-13 10:28] LABS: BASO % 0.6 % (0-2.0); EOS % 6.2 % (0-4.5); HEMOGLOBIN 14.2 GM/dL (11.7-16.9); LYMPH % 40.7 % (8-40); MCH 29.6 pg (25.7-33.7); MCHC 32.2 g/dl (32.0-35.9); MEAN CELL VOLUME 91.9 fl (80-96); MEAN PLT VOLUME 9.3 fl (7.5-11.1); MONO % 8.3 % (3.8-10.2); NEUT % 44.2 % (42.8-82.8); PLATELET COUNT 139 10^3/uL (134-434); RBC 4.79 M/mm3 (4.00-5.60); RDW 14.5 % (11.9-15.9); WHITE BLOOD COUNT 5.5 K/mm3 (4.0-10.0)
[2023-04-13 10:29] LABS: POTASSIUM 4.1 mmol/L (3.5-5.1)
[2023-04-13 10:34] LABS: BLOOD UREA NITROGEN 16.8 mg/dL (7-18)
[2023-04-13 10:39] LABS: TOT PROT 6.5 g/dl (6.4-8.2)
[2023-04-13 10:45] LABS: ALBUMIN 3.4 g/dl (3.4-5.0); BILIRUBIN,TOTAL 0.9 mg/dL (0.2-1)
[2023-04-13] MEDS ORDERED: cloNIDine HCL 0.1 MG TABLET PO ONE (14:15)
[2023-04-13 16:56] VITALS: RESP 18
[2023-04-13 21:23] VITALS: BP 106/67
[2023-04-13] MEDS: THIAMINE HCL 100 MG TABLET (FP) PO SCH (23:27)
[2023-04-13] MEDS: MELATONIN 5 MG TABLETS PO SCH (23:27)
[2023-04-14] MEDS: ALBUTEROL SO4 HFA INHALER IH PRN (05:23)
[2023-04-14 06:09] VITALS: PULSE 88; TEMP 97.7
[2023-04-14] MEDS: PRENATAL VITAMINS W/ FOLIC ACID TABLET (FP) PO SCH (09:41)
== END 2023-04-14 09:58 | disposition home or self-care (01) | DRG 773 ==
LOC: YASAS 09:44 → Y6N 14:14
PROVIDERS: ADMIT Allergy & Immunology; ATTEND Surgery
PROC: HZ2ZZZZ Detoxification Services for Substance Abuse Treatment (ICD-10-PCS; principal; 2023-04-09)
DX: F11.23 Opioid dependence with withdrawal (principal); F14.20 Cocaine dependence, uncomplicated; F17.210 Nicotine dependence, cigarettes, uncomplicated; I10 Essential (primary) hypertension; J44.9 Chronic obstructive pulmonary disease, unspecified; J45.20 Mild intermittent asthma, uncomplicated; Z59.02 Unsheltered homelessness
CPT/HCPCS: 36415; 80053; 85025; 85027; 86780; 87635; 87811

== ENCOUNTER 2024-10-24 09:51 | Inpatient (IN) | payer OTHER ==
[2024-10-24 10:11] VITALS: BMI 25.0
[2024-10-24] MEDS ORDERED: ONDANSETRON *ODT* 4 MG TABLET SL PRN (10:50)
[2024-10-24] MEDS ORDERED: DICYCLOMINE HCL 10 MG CAPSULE PO PRN (10:50)
[2024-10-24] MEDS ORDERED: NALOXONE (NARCAN) HCL 4 MG/0.1 ML SPRAY NS PRN (10:50)
[2024-10-24] MEDS ORDERED: BISMUTH SUBSALICYLATE 262 MG/15 ML BTL PO PRN (10:50)
[2024-10-24] MEDS ORDERED: MAGNESIUM HYDROX 2400MG/30ML ORAL SUSPENSION 30 ML CUP PO PRN (10:50)
[2024-10-24] MEDS ORDERED: ACETAMINOPHEN 325 MG TABLET (FP) PO PRN (10:50)
[2024-10-24] MEDS ORDERED: POLYETHYLENE GLYCOL (HEALTHYLAX) 3350 17 GM PACKET PO PRN (10:50)
[2024-10-24] MEDS ORDERED: BENZONATATE 200 MG CAPSULE PO PRN (10:50)
[2024-10-24] MEDS ORDERED: LOPERAMIDE HCL 2 MG CAPSULE PO PRN (10:50)
[2024-10-24] MEDS ORDERED: guaiFENesin 600 MG TABLET.ER (FP) PO PRN (10:50)
[2024-10-24] MEDS ORDERED: MAG HYDROX/AL HYDROX/SIMETH 30 ML UNIT-DOSE CUP PO PRN (10:50)
[2024-10-24] MEDS ORDERED: BENZOCAINE/MENTHOL (CHLORASEPTIC ) LOZENGE MM PRN (10:50)
[2024-10-24] MEDS ORDERED: IBUPROFEN 400 MG TABLET (FP) PO PRN (10:50)
[2024-10-24] MEDS ORDERED: methaDONE HCL 10 MG TABLET (FOR DETOX USE ONLY) ONE (11:49)
[2024-10-24] MEDS ORDERED: amLODIPine BESYLATE 5 MG TABLET (FP) ONE (11:51)
[2024-10-24] MEDS: amLODIPine BESYLATE 10 MG TABLET (FP) PO SCH (11:54)
[2024-10-24] MEDS: methaDONE HCL 10 MG TABLET PO ONE (11:54)
[2024-10-24] MEDS: predniSONE 20 MG TABLET (UD) PO SCH (12:43)
[2024-10-24] MEDS: BUDESONIDE/FORMETEROL FUMARATE 160/4.5 mcg INHALER IH SCH (12:43)
[2024-10-24] MEDS: AZITHROMYCIN 250 MG TABLET PO ONE (12:50)
[2024-10-24] MEDS: cloNIDine HCL 0.1 MG TABLET PO SCH (13:22)
[2024-10-24] MEDS: methaDONE HCL 10 MG TABLET PO PRN (17:24)
[2024-10-24] MEDS: ALBUTEROL SO4 HFA INHALER IH PRN (17:26)
[2024-10-24] MEDS: MIRTAZAPINE 15 MG TABLET (FP) PO SCH (22:01)
[2024-10-24] MEDS: MELATONIN 5 MG TABLETS PO SCH (22:01)
[2024-10-24] MEDS: THIAMINE 100 MG TABLET PO SCH (22:01)
[2024-10-25] MEDS: AZITHROMYCIN 250 MG TABLET PO SCH (09:35)
[2024-10-25] MEDS: methaDONE 40 MG, methaDONE 10 MG PO ONE (09:36)
[2024-10-25] MEDS: NICOTINE POLACRILEX 2 MG GUM BUC PRN (09:39)
[2024-10-25 09:49] LABS: HEMATOCRIT 41.3 % (40.1-51.0); HEMOGLOBIN 13.2 g/dL (13.7-17.5); MEAN CELL VOLUME 88.1 fl (79.0-92.2); MEAN PLT VOLUME 11.2 fl (9.4-12.4); PLATELET COUNT 194 x10^3/uL (163-337); POTASSIUM 5.1 mmol/L (3.5-5.1); RDW 14.3 % (12.2-16.1)
[2024-10-25 10:04] LABS: ALBUMIN 4.4 g/dl (3.4-5.0); BLOOD UREA NITROGEN 22.9 mg/dL (7-18); CALCIUM 9.5 mg/dL (8.5-10.1)
[2024-10-25 10:06] LABS: BILIRUBIN,TOTAL 1.1 mg/dL (0.2-1); TOT PROT 7.7 g/dl (6.4-8.2)
[2024-10-25 10:07] LABS: CREATININE 1.1 mg/dL (0.55-1.3)
[2024-10-25] MEDS: PRENATAL VITAMINS W/ FOLIC ACID TABLET (FP) PO SCH (10:17)
[2024-10-25 15:27] LABS: HCV DIAGNOSTIC IN-HOUSE W/RFLX NON-REACTIVE (NONREACTIVE); HIV INTERPRETATION NEGATIVE (NEGATIVE)
[2024-10-26] MEDS: methaDONE 40 MG, methaDONE 20 MG PO ONE (09:20)
[2024-10-26] MEDS: cloNIDine HCL 0.1 MG TABLET PO PRN (21:16)
[2024-10-26] MEDS: hydrOXYzine PAMOATE 25 MG CAPSULE (FP) PO PRN (21:16)
[2024-10-27] MEDS: methaDONE 40 MG, methaDONE 30 MG PO ONE (09:48)
[2024-10-27] MEDS: diazePAM 5 MG TABLET PO ONE (19:02)
[2024-10-27] MEDS: LOSARTAN POTASSIUM 25 MG TABLET PO ONE (19:02)
[2024-10-27] MEDS: METHOCARBAMOL 500 MG TABLET PO PRN (22:28)
[2024-10-28] MEDS: methaDONE HCL 40 MG DISPERSABLE TABLET PO ONE (09:20)
[2024-10-29] MEDS: IBUPROFEN 600 MG TABLET (FP) PO PRN (06:42)
[2024-10-29 09:14] VITALS: BP 148/91; PULSE 77; RESP 16; TEMP 97.5
[2024-10-29] MEDS: methaDONE HCL 40 MG DISPERSABLE TABLET PO ONE (09:48)
== END 2024-10-29 11:32 | disposition other institution (70) | DRG 773 ==
LOC: YASAS 09:51 → Y3N 11:51
PROVIDERS: ADMIT Allergy & Immunology; ATTEND Allergy & Immunology
PROC: HZ2ZZZZ Detoxification Services for Substance Abuse Treatment (ICD-10-PCS; principal; 2024-10-24)
DX: F11.23 Opioid dependence with withdrawal (principal); F14.20 Cocaine dependence, uncomplicated; F17.210 Nicotine dependence, cigarettes, uncomplicated; F32.A Depression, unspecified; J44.1 Chronic obstructive pulmonary disease with (acute) exacerbation; J45.901 Unspecified asthma with (acute) exacerbation; I10 Essential (primary) hypertension; R60.0 Localized edema; Z59.00 Homelessness unspecified
CPT/HCPCS: 36415; 80053; 80305; 80307; 85027; 86780; 86803; 87389; 87811; 93005; 93010